=== PATIENT | male | born 1955 | race Caucasian/White ===

== ENCOUNTER 2017-03-22 14:59 | Inpatient (IN) | payer MEDICARE, OTHER ==
[~2017-03-22] VITALS: Ht 175.3 cm; Wt 86.2 kg
[~2017-03-22 14:59] MED LIST: ACTOS30 MG PO; ASPIRIN 32325 MG/TA1 PO; ASPIRIN 81M81 MG/TA2 PO; ASPIRIN E.C. 8181 MG PO; ATENOLOL25 MG PO; AUGMENTIN 875 M1 TAB PO; BACTRIM DS 8001 TAB PO; BYSTOLIC10 MG PO; CARDI-OMEGA1000 MG PO; COREG12.5 MG PO; COZAAR100 MG PO; DIOVAN160 MG PO; FLOMAX 0.40.4 MG/CAP PO; FLONASE NASAL S16 GM NS; GLUCERNA 1.01500 ML PO; GLUCOPHAGE XR500 M1 PO; HUMALOG100 U/ML SC; HUMALOG100 U/ML SQ; IMDUR 30MG30 MG/TAB PO; K-DUR 10 MEQ T10 MEQ PO; LANTUS100 U/ML; LASIX 40MG TABL40 MG PO; LEVEMIR100 U/ML SC; LEVEMIR100 U/ML SQ; LIPITOR 80MG80 MG PO; LIPITOR40 MG PO; LOTENSIN PO; LOTENSIN40 MG PO; MINOCYCLIN100 MG/CAP PO; NORCO 325 MG-51 TAB PO; NORCO 325 MG-7.1 TAB PO; NORVASC 10MG10 MG PO; NORVASC 5MG5 MG/TAB PO; PRIL40 PO; PRILOSEC40 MG PO; PROBIOTIC ACID1 EAC3 PO; PROBIOTIC GOLD1 EACH PO; ST. JOSEPH81 M2 PO; TUMS EX750 MG PO; ULTRAM 50MG TAB50 MG PO; ZINC SO4; ZOCOR 80MG80 MG PO; ZOCOR80 MG PO; ZYRTEC 10MG10 MG PO
[2017-03-22] MEDS ORDERED: BACTRIM DS 8001 TAB PO (15:52)
[2017-03-22 16:21] LABS: BASO # 0.1 (0.0-0.2); BASO % 0.3 % (0.0-2.0); EOS # 0.1 (0.0-0.7); EOS % 0.6 % (0-4.0); HEMATOCRIT 37.6 % (42.0-52.0); HEMOGLOBIN 12.4 g/dl (13.5-18.0); LYMPH # 0.8 (1.2-3.4); LYMPH % 4.6 % (20.0-51.0); MEAN CELL VOLUME 80 fl (80.0-100.0); MEAN CORPUSCULAR HEMOGLOBIN 26 pg (27.0-31.0); MEAN CORPUSCULAR HGB CONC 33 g/dl (33.0-37.0); MEAN PLATELET VOLUME 10.3 fl (7.4-10.4); MONO # 0.9 (0.1-0.6); MONO % 5.1 % (1.7-9.3); PLATELET COUNT 341 K/mm3 (130-400); RED BLOOD COUNT 4.73 M/mm3 (4.20-5.60)
[2017-03-22 16:33] LABS: ADJUSTED CALCIUM 9.3 mg/dL (8.4-10.2); ALBUMIN 3.2 gm/dL (3.5-5.0); BILIRUBIN,TOTAL 0.8 mg/dL (0.0-1.0); CALCIUM 8.7 mg/dL (8.4-10.2); CREATININE, serum 0.91 mg/dL (0.66-1.25); POTASSIUM 4.6 mmol/L (3.4-5.0); TOTAL PROTEIN 7.5 gm/dL (6.4-8.2)
[2017-03-22 16:52] LABS: C-REACTIVE PROTEIN 25.7 mg/dL (0.0-0.9)
[2017-03-22 19:09] VITALS: BP 140/58; PULSE 69; TEMP 98.9
[2017-03-22 22:00] VITALS: BP 123/54; PULSE 62; TEMP 98.3
[2017-03-23] VITALS (12 sets, daily range): BP systolic 111–138; BP diastolic 50–61; PULSE 57–63; TEMP 97–98.2
[2017-03-23 00:57] LABS: PH 5 (5-8); SQUAMOUS EPITHELIAL None Seen /hpf; URINE APPEARANCE Clear; URINE BACTERIA None Seen /hpf; URINE BILIRUBIN Negative (NEGATIVE); URINE BLOOD 1+ (NEGATIVE); URINE COLOR Yellow; URINE GLUCOSE Negative (NEGATIVE); URINE KETONE Trace (NEGATIVE); URINE UROBILINOGEN Negative (NEGATIVE); URINE WBC 0-2 /hpf
[2017-03-23 10:19] LABS: BASO # 0.1 (0.0-0.2); BASO % 0.5 % (0.0-2.0); EOS # 0.2 (0.0-0.7); EOS % 1.4 % (0-4.0); GRAN # 11.5 (1.4-6.5); GRAN % 82.1 % (42.2-75.2); HEMATOCRIT 33.8 % (42.0-52.0); HEMOGLOBIN 10.9 g/dl (13.5-18.0); LYMPH # 1.4 (1.2-3.4); LYMPH % 9.8 % (20.0-51.0); MEAN CELL VOLUME 82 fl (80.0-100.0); MEAN CORPUSCULAR HEMOGLOBIN 26 pg (27.0-31.0); MEAN CORPUSCULAR HGB CONC 32 g/dl (33.0-37.0); MEAN PLATELET VOLUME 10.4 fl (7.4-10.4); MONO # 0.8 (0.1-0.6); MONO % 5.6 % (1.7-9.3); PLATELET COUNT 361 K/mm3 (130-400); RED BLOOD COUNT 4.12 M/mm3 (4.20-5.60); REDCELL DISTRIBUTION WIDTH-CV 14.4 % (11.5-14.5)
[2017-03-23 10:20] LABS: INR 1.5 (0.8-3.0); PROTHROMBIN TIME 16.7 SECONDS (9.7-12.8)
[2017-03-23 10:35] LABS: CALCIUM 8.2 mg/dL (8.4-10.2); CREATININE, serum 0.78 mg/dL (0.66-1.25); POTASSIUM 4.4 mmol/L (3.4-5.0)
[2017-03-24 01:18] VITALS: BP 117/65; PULSE 56; TEMP 97.4
[2017-03-24 06:18] VITALS: BP 140/63; PULSE 65; TEMP 97.2
[2017-03-24 07:19] LABS: MEAN CELL VOLUME 84 fl (80.0-100.0); MEAN CORPUSCULAR HGB CONC 31 g/dl (33.0-37.0); MEAN PLATELET VOLUME 10.6 fl (7.4-10.4); PLATELET COUNT 355 K/mm3 (130-400); RED BLOOD COUNT 3.99 M/mm3 (4.20-5.60); REDCELL DISTRIBUTION WIDTH-CV 14.2 % (11.5-14.5); WHITE BLOOD COUNT 13.8 K/mm3 (4.8-10.8)
[2017-03-24 07:34] LABS: ADD PATHOLOGY DIFF REVIEW NO; HEMATOCRIT 33.4 % (42.0-52.0); HEMOGLOBIN 10.5 g/dl (13.5-18.0); MEAN CORPUSCULAR HEMOGLOBIN 26 pg (27.0-31.0)
[2017-03-24 07:37] LABS: ADJUSTED CALCIUM 8.8 mg/dL (8.4-10.2); ALBUMIN 2.8 gm/dL (3.5-5.0); BILIRUBIN,TOTAL 0.6 mg/dL (0.0-1.0); CALCIUM 7.8 mg/dL (8.4-10.2); CREATININE, serum 0.75 mg/dL (0.66-1.25); POTASSIUM 4.5 mmol/L (3.4-5.0)
[2017-03-24 08:17] LABS: BAND 3 % (0-10); NEUTROPHILS 91 % (42.0-75.2); TOTAL CELLS COUNTED 100
[2017-03-24 08:18] LABS: ANISOCYTOSIS 1+; PLATELET ESTIMATE NORMAL (NORMAL)
[2017-03-24 10:18] VITALS: BP 132/52; PULSE 70; TEMP 97.1
[2017-03-24 12:45] VITALS: BP 150/59; PULSE 62; TEMP 97.7
[2017-03-24 17:27] VITALS: BP 151/64; PULSE 68; TEMP 97.9
[2017-03-24 21:56] VITALS: BP 143/58; PULSE 66; TEMP 97.9
[2017-03-25 06:11] VITALS: BP 153/66; PULSE 69; TEMP 99
[2017-03-25 07:18] LABS: MEAN CELL VOLUME 84 fl (80.0-100.0); MEAN CORPUSCULAR HGB CONC 32 g/dl (33.0-37.0); MEAN PLATELET VOLUME 10.3 fl (7.4-10.4); PLATELET COUNT 418 K/mm3 (130-400); REDCELL DISTRIBUTION WIDTH-CV 14.3 % (11.5-14.5); WHITE BLOOD COUNT 15.7 K/mm3 (4.8-10.8)
[2017-03-25 07:32] LABS: ADD PATHOLOGY DIFF REVIEW NO; HEMATOCRIT 33.7 % (42.0-52.0); HEMOGLOBIN 10.6 g/dl (13.5-18.0); MEAN CORPUSCULAR HEMOGLOBIN 27 pg (27.0-31.0)
[2017-03-25 07:35] LABS: ADJUSTED CALCIUM 9.1 mg/dL (8.4-10.2); ALBUMIN 2.7 gm/dL (3.5-5.0); BILIRUBIN,TOTAL 0.5 mg/dL (0.0-1.0); CALCIUM 8.1 mg/dL (8.4-10.2); CREATININE, serum 0.61 mg/dL (0.66-1.25); TOTAL PROTEIN 6.9 gm/dL (6.4-8.2)
[2017-03-25 07:49] LABS: POTASSIUM 4.2 mmol/L (3.4-5.0)
[2017-03-25 08:30] LABS: BAND 1 % (0-10); NEUTROPHILS 89 % (42.0-75.2); TOTAL CELLS COUNTED 100
[2017-03-25 08:32] LABS: PLATELET ESTIMATE INCREASED (NORMAL)
[2017-03-25 09:06] VITALS: BP 143/50; PULSE 72; TEMP 98.5
[2017-03-25 14:17] VITALS: BP 134/55; PULSE 69; TEMP 97.7
[2017-03-25 18:00] VITALS: BP 153/67; PULSE 83; TEMP 98.9
[2017-03-25 22:00] VITALS: BP 143/59; PULSE 65; TEMP 98.3
[2017-03-26 02:29] VITALS: BP 156/81; PULSE 67; TEMP 97.7
[2017-03-26 06:52] VITALS: BP 172/74; PULSE 74; TEMP 98
[2017-03-26 08:27] LABS: BASO # 0.1 (0.0-0.2); BASO % 0.5 % (0.0-2.0); EOS # 0.3 (0.0-0.7); EOS % 3.6 % (0-4.0); GRAN # 5.6 (1.4-6.5); GRAN % 60.4 % (42.2-75.2); LYMPH # 2.4 (1.2-3.4); LYMPH % 26.2 % (20.0-51.0); MEAN CELL VOLUME 83 fl (80.0-100.0); MEAN CORPUSCULAR HGB CONC 32 g/dl (33.0-37.0); MEAN PLATELET VOLUME 10.2 fl (7.4-10.4); MONO # 0.7 (0.1-0.6); MONO % 7.9 % (1.7-9.3); PLATELET COUNT 443 K/mm3 (130-400); RED BLOOD COUNT 4.31 M/mm3 (4.20-5.60); REDCELL DISTRIBUTION WIDTH-CV 14.3 % (11.5-14.5); WHITE BLOOD COUNT 9.3 K/mm3 (4.8-10.8)
[2017-03-26 08:36] LABS: HEMATOCRIT 35.6 % (42.0-52.0); HEMOGLOBIN 11.4 g/dl (13.5-18.0); MEAN CORPUSCULAR HEMOGLOBIN 26 pg (27.0-31.0)
[2017-03-26] MEDS ORDERED: NORCO 325 MG-7.1 TAB PO (08:43)
[2017-03-26 09:08] VITALS: BP 139/62; PULSE 71; TEMP 98.4
[2017-03-26 13:54] VITALS: BP 109/52; PULSE 66; TEMP 97.6
== END 2017-03-26 14:50 | disposition home health service (06) | DRG 617 ==
LOC: COL.ER 14:59 → MEDICAL 17:42 → SURG 17:42 → MEDICAL 03-23 11:58 → SURG 03-23 13:36
PROVIDERS: Emergency Medicine; Nurse Practitioner Family; Orthopaedic Surgery; Physician Assistant
PROC: 0Y6J0Z1 Detachment at Left Lower Leg, High, Open Approach (ICD-10-PCS; principal; 2017-03-23 15:00)
DX: E11.621 Type 2 diabetes mellitus with foot ulcer (principal); L03.116 Cellulitis of left lower limb; L97.429 Non-pressure chronic ulcer of left heel and midfoot with unspecified severity; I50.42 Chronic combined systolic (congestive) and diastolic (congestive) heart failure; E87.1 Hypo-osmolality and hyponatremia; E11.628 Type 2 diabetes mellitus with other skin complications; I25.10 Atherosclerotic heart disease of native coronary artery without angina pectoris; Z95.1 Presence of aortocoronary bypass graft; I11.0 Hypertensive heart disease with heart failure; D64.9 Anemia, unspecified; E86.0 Dehydration; Z89.431 Acquired absence of right foot; Z89.432 Acquired absence of left foot; I73.9 Peripheral vascular disease, unspecified
CPT/HCPCS: 99222-AI; 99232-AI; 99239; A9284; J0690; J1100; J1170; J1815; J2250; J2270; J2405; J2543; J2704; J2765; J3010; J3370; J7030; J7040; J7050

== ENCOUNTER → 2017-06-21 | Outpatient (CLI) | payer MEDICARE, OTHER | LOC: SUN.DIA 14:23 | DX: E11.9 Type 2 diabetes mellitus without complications (principal); Z79.4 Long term (current) use of insulin; E78.5 Hyperlipidemia, unspecified; I11.9 Hypertensive heart disease without heart failure; E66.9 Obesity, unspecified; Z71.3 Dietary counseling and surveillance | CPT/HCPCS: G0108 ==

== ENCOUNTER → 2017-07-27 | Outpatient (CLI) | payer MEDICARE, OTHER | LOC: SUN.DIA 10:25 | DX: E11.9 Type 2 diabetes mellitus without complications (principal); Z79.4 Long term (current) use of insulin; E78.5 Hyperlipidemia, unspecified; I11.9 Hypertensive heart disease without heart failure; E66.9 Obesity, unspecified; Z71.3 Dietary counseling and surveillance ==

== ENCOUNTER 2018-03-11 09:10 | Day surgery (SDC) | payer MEDICARE, OTHER ==
[~2018-03-11] VITALS: Ht 175.3 cm; Wt 91.1 kg
[2018-03-11 09:37] VITALS: BP 177/76; PULSE 60; TEMP 98.7
[2018-03-11] MEDS ORDERED: FLONASEALLERGY NS (09:44)
[2018-03-11] MEDS ORDERED: ZOLOFT 50MG50 MG PO (09:45)
[2018-03-11] MEDS ORDERED: CRESTOR20 MG PO (09:45)
[2018-03-11] MEDS ORDERED: PROBIOTIC FORMU1 CAP PO (09:45)
[2018-03-11 11:30] VITALS: BP 158/94; PULSE 72
[2018-03-11 11:45] VITALS: BP 144/83; PULSE 70
[2018-03-11 12:00] VITALS: BP 150/76; PULSE 56
[2018-03-11 12:15] VITALS: BP 153/81; PULSE 57
== END 2018-03-11 12:40 | disposition home or self-care (01) ==
LOC: SDCO 09:10
DX: Z12.11 Encounter for screening for malignant neoplasm of colon (principal); K57.30 Diverticulosis of large intestine without perforation or abscess without bleeding; I10 Essential (primary) hypertension; I51.9 Heart disease, unspecified; E11.9 Type 2 diabetes mellitus without complications; E78.00 Pure hypercholesterolemia, unspecified; Z79.899 Other long term (current) drug therapy; Z79.82 Long term (current) use of aspirin; Z79.4 Long term (current) use of insulin
CPT/HCPCS: OP; J2250; J3010; J7030

== ENCOUNTER → 2018-09-06 | Outpatient (CLI) | payer MEDICARE, OTHER ==
[~2018-09-06] MED LIST changes: +CRESTOR20 MG PO; +FLONASEALLERGY NS; +PROBIOTIC FORMU1 CAP PO; +ZOLOFT 50MG50 MG PO
== END ==
LOC: COL.RAD 07:22
DX: K80.20 Calculus of gallbladder without cholecystitis without obstruction (principal); K86.2 Cyst of pancreas
CPT/HCPCS: A9585

== ENCOUNTER 2018-09-13 11:16 | Emergency (ER) | payer MEDICARE, OTHER ==
[~2018-09-13] VITALS: Ht 177.8 cm; Wt 93.2 kg
[2018-09-13 11:19] VITALS: TEMP 97.7
[2018-09-13] MEDS ORDERED: ZOLOFT 100MG100 MG PO (11:29)
[2018-09-13] MEDS ORDERED: PROAIR HFA0.09 MG/AC IH (11:33)
[2018-09-13] MEDS ORDERED: CLARITIN 1010 MG/TAB PO (11:34)
[2018-09-13 11:54] LABS: BASO # 0.1 (0.0-0.2); BASO % 0.8 % (0.0-2.0); EOS # 0.9 (0.0-0.7); EOS % 8.8 % (0-4.0); GRAN # 5.7 (1.4-6.5); GRAN % 58.3 % (42.2-75.2); LYMPH # 2.2 (1.2-3.4); LYMPH % 22.9 % (20.0-51.0); MEAN CELL VOLUME 87 fl (80.0-100.0); MEAN CORPUSCULAR HEMOGLOBIN 29 pg (27.0-31.0); MEAN CORPUSCULAR HGB CONC 33 g/dl (33.0-37.0); MONO # 0.9 (0.1-0.6); PLATELET COUNT 236 K/mm3 (130-400); REDCELL DISTRIBUTION WIDTH-CV 13.5 % (11.5-14.5)
[2018-09-13 12:06] LABS: ALBUMIN 4.1 gm/dL (3.5-5.0); BILIRUBIN,TOTAL 0.3 mg/dL (0.0-1.0); CREATININE, serum 0.67 mg/dL (0.66-1.25); POTASSIUM 4.5 mmol/L (3.4-5.0); TOTAL PROTEIN 7.5 gm/dL (6.4-8.2)
[2018-09-13 12:53] LABS: COLLECTION METHOD CLEAN CATCH
[2018-09-13 13:00] LABS: MUCOUS Present /lpf; PH 6 (5-8); SQUAMOUS EPITHELIAL 0-2 /hpf; URINE APPEARANCE Clear; URINE BACTERIA None Seen /hpf; URINE BILIRUBIN Negative (NEGATIVE); URINE BLOOD Negative (NEGATIVE); URINE COLOR Yellow; URINE GLUCOSE 3+ (NEGATIVE); URINE KETONE Negative (NEGATIVE); URINE LEUKOCYTE ESTERASE Negative (NEGATIVE); URINE NITRATE Negative (NEGATIVE); URINE PROTEIN(semi-quant) 2+ (NEGATIVE); URINE RBC 0-2 /hpf; URINE UROBILINOGEN Negative (NEGATIVE)
[2018-09-13 15:02] VITALS: BP 128/62; PULSE 56
== END 2018-09-13 15:16 | disposition home or self-care (01) ==
LOC: COL.ER 11:16
PROVIDERS: Emergency Medicine
DX: R10.9 Unspecified abdominal pain (principal); I25.10 Atherosclerotic heart disease of native coronary artery without angina pectoris; I50.9 Heart failure, unspecified; I11.0 Hypertensive heart disease with heart failure; E11.9 Type 2 diabetes mellitus without complications; Z95.1 Presence of aortocoronary bypass graft; Z98.84 Bariatric surgery status
CPT/HCPCS: J2270; J2405; J7040; Q9967

== ENCOUNTER 2018-11-03 14:17 | Inpatient (IN) | payer MEDICARE, OTHER ==
[~2018-11-03] VITALS: Ht 175.3 cm; Wt 89.9 kg
[~2018-11-03 14:17] MED LIST changes: +CLARITIN 1010 MG/TAB PO; +PROAIR HFA0.09 MG/AC IH; +ZOLOFT 100MG100 MG PO
[2018-11-03 14:36] LABS: BASO # 0.1 (0.0-0.2); BASO % 0.7 % (0.0-2.0); EOS # 0.7 (0.0-0.7); EOS % 6.8 % (0-4.0); GRAN # 5.6 (1.4-6.5); GRAN % 57.2 % (42.2-75.2); HEMATOCRIT 42.6 % (42.0-52.0); HEMOGLOBIN 14.2 g/dl (13.5-18.0); LYMPH # 2.4 (1.2-3.4); LYMPH % 24.4 % (20.0-51.0); MEAN CELL VOLUME 86 fl (80.0-100.0); MEAN CORPUSCULAR HEMOGLOBIN 29 pg (27.0-31.0); MEAN CORPUSCULAR HGB CONC 33 g/dl (33.0-37.0); MEAN PLATELET VOLUME 10.7 fl (7.4-10.4); MONO % 10.5 % (1.7-9.3); PLATELET COUNT 208 K/mm3 (130-400); RED BLOOD COUNT 4.93 M/mm3 (4.20-5.60); REDCELL DISTRIBUTION WIDTH-CV 13.2 % (11.5-14.5)
[2018-11-03 14:45] LABS: PROTHROMBIN TIME 11.2 SECONDS (9.7-12.8)
[2018-11-03 14:48] LABS: PARTIAL THROMBOPLASTIN TIME 31.3 SECONDS (26.0-37.0)
[2018-11-03 14:51] LABS: ALANINE AMINOTRANSFERASE 27 U/L (21-72); ALBUMIN 4.1 gm/dL (3.5-5.0); ALKALINE PHOSPHATASE 85 U/L (50-136); ANION GAP 12 mmol/L (7-16); AST,SGOT 24 U/L (15-37); BILIRUBIN,TOTAL 0.3 mg/dL (0.0-1.0); BLOOD UREA NITROGEN 24 mg/dL (9-20); CALCIUM 9.7 mg/dL (8.4-10.2); CARBON DIOXIDE 26 mmol/L (22-30); CHLORIDE 100 mmol/L (98-107); CREATININE, serum 0.74 mg/dL (0.66-1.25); GLUCOSE 166 mg/dL (74-106); LIPASE 60 U/L (23-300); POTASSIUM 4.2 mmol/L (3.4-5.0); SODIUM 138 mmol/L (137-145); TOTAL PROTEIN 7.4 gm/dL (6.4-8.2)
[2018-11-03 15:03] LABS: TROPONIN-I < 0.012 ng/mL (0.000-0.034)
--- NOTE | 2018-11-03 18:47 | NUR ---
Pt arrived to room 352 from ED. He is awake and A/Ox4. He denies pain or discomfort. Saline lock to right hand is free of complications. Meds/allergies/pharm reviewed. Pt denies any shortness of breath, remains on room air. Pt eating supper.
[2018-11-03 19:09] VITALS: BP 146/62; PULSE 66; TEMP 98.5
--- NOTE | 2018-11-03 22:40 | NUR ---
Resting in bed. Assessment complete. Lungs clear. Heart sounds normal. Bowels active. Alert and orientated. Denies pain. Denies needs at this time. Call light in reach.
[2018-11-04] VITALS (16 sets, daily range): BP systolic 122–163; BP diastolic 50–88; PULSE 56–117; TEMP 97.4–98.9
--- NOTE | 2018-11-04 02:58 | NUR ---
Resting in bed asleep. Call light in reach.
--- NOTE | 2018-11-04 04:30 | NUR ---
Up to restroom and returned to bed x1 assist. Call light in reach.
--- NOTE | 2018-11-04 06:38 | NUR ---
Uneventful night. Resting in bed this AM. Denies needs. Call light in reach.
--- NOTE | 2018-11-04 10:51 | NUR ---
Assessment completed, alert/oriented, vital signs stable, denies any further chest pain or dsicomfort, troponin are negative and SR on tele with no acute changes, lung CTA/ no resp.difficulty, sitting up in the chair, he has been NPO / waiting to see district attorney, denies other needs at this time
--- NOTE | 2018-11-04 14:00 | NUR ---
Report received from JARRETT Bell. Pt resting in bed; plan for heart cath this afternoon. Denies further needs at this time.
--- NOTE | 2018-11-04 14:47 | NUR ---
SW and SW student met with patient to discuss discharge planning. While talking surgery came in to take patient to heart cath. Patients PCP Is Dr Herb Harris and [facility] Patient lives with his and uses a walker to ambulate. SW will attempt to meet with him again to complete intake.
--- NOTE | 2018-11-04 15:15 | NUR ---
ALL MEDICATIONS GIVEN BY VERBAL ORDER WITH READBACK WITH MD. SEE MERGE FOR ALL MEDICATION ADMIN TIMES. POSITIVE FAINA'S TEST ON THE LEFT WRIST.
--- NOTE | 2018-11-04 16:20 | NUR ---
Pt returned from vp lab, clean heart cath per report. Cath site clean, dry, intact to left radial with TR band in place. No bleeding noted. Denies needs.
--- NOTE | 2018-11-04 18:29 | NUR ---
Pt vitals remain stable. 5 mL air removed from left radial TR band. Will continue to monitor.
--- NOTE | 2018-11-04 18:44 | NUR ---
No bleeding noted; remaining 5 mL air removed from TR band.
--- NOTE | 2018-11-04 19:10 | NUR ---
Report given to JARRETT Saunders. TR band removed and bandaid placed to cath site. No bleeding or hematoma noted. Denies further needs.
--- NOTE | 2018-11-04 20:14 | NUR ---
PT IN BED WITH HOB AT 45 DEGREE ANGLE, DENIES PAIN OR DISCOMFORT. LEFT RADIAL SITE WITH NO HEMATOMA. PT GIVEN DISCHARGE INSTRUCTIONS AND VERBALIZED UNDERSTANDING, AT BEDSIDE.
--- NOTE | 2018-11-04 20:50 | NUR ---
PT AND GIVEN DISCHARGE INSTRUCTIONS AND VERBALIZED UNDERSTANDING. DISCHARGE PAPERWORK SIGNED BY PT. PT'S IV WAS REMOVED FROM RIGHT HAND, CATHETER INTACT, APPLIED PRESSURE TILL BLEEDING STOPPED, AND A PROTECTIVE DRSG APPLIED, TELEMETRY WAS REMOVED, AND PT WAS ASSISTED GETTING DRESSED BY . PT WAS TAKEN OUT OF FACILITY VIA WHEELCHAIR PUSHED BY TIP MENDER, AND LEFT IN PRIVATE VEHICLE.
== END 2018-11-04 20:50 | disposition home or self-care (01) | DRG 287 ==
LOC: COL.ER 14:17 → MEDICAL 15:44
PROVIDERS: Emergency Medicine; ADMIT Internal Medicine Cardiovascular Disease
PROC: B2111ZZ Fluoroscopy of Multiple Coronary Arteries using Low Osmolar Contrast (ICD-10-PCS; principal; 2018-11-04)
PROC: B2151ZZ Fluoroscopy of Left Heart using Low Osmolar Contrast (ICD-10-PCS; 2018-11-04)
PROC: 4A023N7 Measurement of Cardiac Sampling and Pressure, Left Heart, Percutaneous Approach (ICD-10-PCS; 2018-11-04)
DX: I25.110 Atherosclerotic heart disease of native coronary artery with unstable angina pectoris (principal); I50.32 Chronic diastolic (congestive) heart failure; I11.0 Hypertensive heart disease with heart failure; E11.9 Type 2 diabetes mellitus without complications; I25.10 Atherosclerotic heart disease of native coronary artery without angina pectoris; Z95.1 Presence of aortocoronary bypass graft; Z89.512 Acquired absence of left leg below knee; Z89.431 Acquired absence of right foot; E78.5 Hyperlipidemia, unspecified; Z79.4 Long term (current) use of insulin; I73.9 Peripheral vascular disease, unspecified; F41.9 Anxiety disorder, unspecified; K21.9 Gastro-esophageal reflux disease without esophagitis
CPT/HCPCS: OP; J1644; J1650; J1815; J2250; J3010; Q9967

== ENCOUNTER 2019-01-26 08:34 | Outpatient (RCR) | payer OTHER | END 2019-02-03 09:29 | LOC: WSOH 08:34 | DX: Z01.89 Encounter for other specified special examinations (principal) ==

== ENCOUNTER 2019-12-08 13:09 | Emergency (ER) | payer MEDICARE, OTHER ==
[~2019-12-08] VITALS: Ht 177.8 cm; Wt 94.1 kg
[2019-12-08 13:21] VITALS: TEMP 99
[2019-12-08 14:10] LABS: BASO % 0.6 % (0.0-2.0); EOS # 0.2 (0.0-0.7); EOS % 2.4 % (0-4.0); GRAN # 5.1 (1.4-6.5); GRAN % 70.3 % (42.2-75.2); HEMATOCRIT 41.4 % (42.0-52.0); HEMOGLOBIN 13.4 g/dl (13.5-18.0); LYMPH # 0.9 (1.2-3.4); LYMPH % 11.8 % (20.0-51.0); MEAN CELL VOLUME 87 fl (80.0-100.0); MEAN CORPUSCULAR HEMOGLOBIN 28 pg (27.0-31.0); MEAN CORPUSCULAR HGB CONC 32 g/dl (33.0-37.0); MEAN PLATELET VOLUME 10.3 fl (7.4-10.4); MONO # 1.1 (0.1-0.6); MONO % 14.6 % (1.7-9.3); PLATELET COUNT 191 K/mm3 (130-400); RED BLOOD COUNT 4.78 M/mm3 (4.20-5.60); REDCELL DISTRIBUTION WIDTH-CV 13.9 % (11.5-14.5)
[2019-12-08 14:18] LABS: ALBUMIN 4.3 gm/dL (3.5-5.0); BILIRUBIN,TOTAL 0.5 mg/dL (0.0-1.0); CREATININE, serum 0.81 (0.66-1.25); POTASSIUM 4.4 mmol/L (3.4-5.0); TOTAL PROTEIN 7.6 gm/dL (6.4-8.2)
[2019-12-08 16:01] VITALS: BP 134/66; PULSE 76
== END 2019-12-08 16:01 | disposition home or self-care (01) ==
LOC: COL.ER 13:09
PROVIDERS: Family Medicine
DX: J44.9 Chronic obstructive pulmonary disease, unspecified (principal); J10.1 Influenza due to other identified influenza virus with other respiratory manifestations; R53.1 Weakness; I50.9 Heart failure, unspecified; I25.10 Atherosclerotic heart disease of native coronary artery without angina pectoris; E11.9 Type 2 diabetes mellitus without complications; Z79.4 Long term (current) use of insulin; Z79.82 Long term (current) use of aspirin; Z79.51 Long term (current) use of inhaled steroids
CPT/HCPCS: J7030

== ENCOUNTER → 2020-03-18 | Emergency (ER) | payer MEDICARE, OTHER ==
[~2020-03-18] VITALS: Ht 177.8 cm; Wt 92.3 kg
[~2020-03-18] MED LIST changes: +MULTI VITAMINS1 TAB PO; +PRILOTC PO; +RANEXA 500MG T500 MG PO; +VICTOZA6 MG/ML SQ
[2020-03-18 23:39] VITALS: PULSE 84
[2020-03-18 23:50] LABS: ARTERIAL BLD GAS O2 SATURATION 93.5 % (92-100); ARTERIAL BLD GAS TCO2 CT 22.7; ARTERIAL BLOOD GAS HCO3 21.6 meq/L (22-26); ARTERIAL BLOOD GAS PCO2 33.5 mmHg (35-45); ARTERIAL BLOOD GAS PO2 68.9 mmHg (80-100); ARTERIAL BLOOD GAS pH 7.43 (7.35-7.45)
[2020-03-19 00:17] LABS: ALBUMIN 3.7 gm/dL (3.5-5.0); BASO % 0.3 % (0.0-2.0); BILIRUBIN,TOTAL 0.8 mg/dL (0.0-1.0); CALCIUM 8.9 mg/dL (8.4-10.2); CREATININE, serum 0.67 (0.66-1.25); EOS # 0.4 (0.0-0.7); EOS % 2.3 % (0-4.0); GRAN # 12.9 (1.4-6.5); GRAN % 82.2 % (42.2-75.2); HEMATOCRIT 37.4 % (42.0-52.0); LYMPH # 1.3 (1.2-3.4); MEAN CELL VOLUME 85 fl (80.0-100.0); MEAN CORPUSCULAR HEMOGLOBIN 27 pg (27.0-31.0); MEAN CORPUSCULAR HGB CONC 32 g/dl (33.0-37.0); MEAN PLATELET VOLUME 10.3 fl (7.4-10.4); MONO # 1.1 (0.1-0.6); MONO % 6.7 % (1.7-9.3); PLATELET COUNT 195 K/mm3 (130-400); POTASSIUM 3.6 mmol/L (3.4-5.0); RED BLOOD COUNT 4.39 M/mm3 (4.20-5.60); REDCELL DISTRIBUTION WIDTH-CV 16.6 % (11.5-14.5); TOTAL PROTEIN 7.1 gm/dL (6.4-8.2)
[2020-03-19 00:32] LABS: INR 1.1 (0.8-3.0); PROTHROMBIN TIME 12.2 SECONDS (9.7-12.8)
[2020-03-19 00:35] LABS: PARTIAL THROMBOPLASTIN TIME 29.4 SECONDS (26.0-37.0)
[2020-03-19 00:36] LABS: TROPONIN-I 0.102 ng/mL (0.000-0.035)
[2020-03-19 01:15] VITALS: BP 148/74
== END ==
LOC: COL.ER 23:35
PROVIDERS: Emergency Medicine
DX: J18.9 Pneumonia, unspecified organism (principal); I21.4 Non-ST elevation (NSTEMI) myocardial infarction; I11.0 Hypertensive heart disease with heart failure; I50.9 Heart failure, unspecified; I25.10 Atherosclerotic heart disease of native coronary artery without angina pectoris; I25.2 Old myocardial infarction; E11.9 Type 2 diabetes mellitus without complications; J45.909 Unspecified asthma, uncomplicated; E78.5 Hyperlipidemia, unspecified; Z95.1 Presence of aortocoronary bypass graft; Z79.84 Long term (current) use of oral hypoglycemic drugs; Z79.899 Other long term (current) drug therapy; Z79.82 Long term (current) use of aspirin
CPT/HCPCS: J1644; J1940; J2543

== ENCOUNTER 2020-05-07 09:04 | Emergency (ER) | payer MEDICARE, OTHER ==
[~2020-05-07] VITALS: Ht 177.8 cm; Wt 93.2 kg
[2020-05-07 09:09] VITALS: TEMP 97.5
[2020-05-07 09:56] LABS: BASO % 0.4 % (0.0-2.0); EOS # 0.3 (0.0-0.7); EOS % 3.2 % (0-4.0); GRAN # 7.1 (1.4-6.5); GRAN % 76.7 % (42.2-75.2); HEMOGLOBIN 11.3 g/dl (13.5-18.0); LYMPH # 1.1 (1.2-3.4); MEAN CELL VOLUME 85 fl (80.0-100.0); MEAN CORPUSCULAR HEMOGLOBIN 26 pg (27.0-31.0); MEAN CORPUSCULAR HGB CONC 31 g/dl (33.0-37.0); MEAN PLATELET VOLUME 11.1 fl (7.4-10.4); MONO # 0.7 (0.1-0.6); MONO % 7.5 % (1.7-9.3); PLATELET COUNT 192 K/mm3 (130-400); RED BLOOD COUNT 4.31 M/mm3 (4.20-5.60); REDCELL DISTRIBUTION WIDTH-CV 14.7 % (11.5-14.5)
[2020-05-07 10:00] LABS: PROTHROMBIN TIME 11.6 SECONDS (9.7-12.8)
[2020-05-07 10:05] LABS: ALBUMIN 4.1 gm/dL (3.5-5.0); BILIRUBIN,TOTAL 0.6 mg/dL (0.0-1.0); CALCIUM 9.2 mg/dL (8.4-10.2); CREATININE, serum 0.7 (0.66-1.25); TOTAL PROTEIN 7.5 gm/dL (6.4-8.2)
[2020-05-07 10:16] LABS: TROPONIN-I 0.017 ng/mL (0.000-0.035)
[2020-05-07 10:39] LABS: HEMATOCRIT 36.4 % (42.0-52.0)
[2020-05-07] MEDS ORDERED: LEVAQUIN 750MG750 M1 PO (11:31)
[2020-05-07 12:03] VITALS: BP 140/73; PULSE 72
== END 2020-05-07 12:07 | disposition home or self-care (01) ==
LOC: COL.ER 09:04
PROVIDERS: Emergency Medicine
DX: J18.1 Lobar pneumonia, unspecified organism (principal); I50.9 Heart failure, unspecified; Z79.82 Long term (current) use of aspirin; Z86.19 Personal history of other infectious and parasitic diseases
CPT/HCPCS: J7030

== ENCOUNTER 2020-05-15 10:01 | Emergency (ER) | payer MEDICARE, OTHER ==
[~2020-05-15] VITALS: Ht 175.3 cm; Wt 94.5 kg
[~2020-05-15 10:01] MED LIST changes: +LEVAQUIN 750MG750 M1 PO
[2020-05-15 10:09] VITALS: TEMP 97.8
[2020-05-15 10:42] LABS: BASO # 0.1 (0.0-0.2); BASO % 0.5 % (0.0-2.0); EOS # 0.2 (0.0-0.7); EOS % 1.6 % (0-4.0); GRAN # 8.5 (1.4-6.5); GRAN % 77.8 % (42.2-75.2); HEMOGLOBIN 11.6 g/dl (13.5-18.0); LYMPH # 1.4 (1.2-3.4); LYMPH % 12.5 % (20.0-51.0); MEAN CELL VOLUME 84 fl (80.0-100.0); MEAN CORPUSCULAR HEMOGLOBIN 27 pg (27.0-31.0); MEAN CORPUSCULAR HGB CONC 32 g/dl (33.0-37.0); MEAN PLATELET VOLUME 10.2 fl (7.4-10.4); MONO # 0.8 (0.1-0.6); MONO % 7.1 % (1.7-9.3); PLATELET COUNT 238 K/mm3 (130-400); RED BLOOD COUNT 4.38 M/mm3 (4.20-5.60)
[2020-05-15 10:44] LABS: HEMATOCRIT 36.8 % (42.0-52.0)
[2020-05-15 10:45] LABS: INR 1.1 (0.8-3.0); PROTHROMBIN TIME 12.6 SECONDS (9.7-12.8)
[2020-05-15 10:57] LABS: ALBUMIN 4.1 gm/dL (3.5-5.0); BILIRUBIN,TOTAL 0.7 mg/dL (0.0-1.0); C-REACTIVE PROTEIN 1.1 mg/dL (0.0-0.9); CALCIUM 9.1 mg/dL (8.4-10.2); CREATININE, serum 0.88 (0.66-1.25); TOTAL PROTEIN 7.6 gm/dL (6.4-8.2)
[2020-05-15 11:06] LABS: TROPONIN-I 0.012 ng/mL (0.000-0.035)
[2020-05-15 13:30] VITALS: BP 125/60; PULSE 71
== END 2020-05-15 13:30 | disposition home or self-care (01) ==
LOC: COL.ER 10:01
PROVIDERS: Emergency Medicine
DX: I50.9 Heart failure, unspecified (principal); E11.9 Type 2 diabetes mellitus without complications; I25.10 Atherosclerotic heart disease of native coronary artery without angina pectoris; Z79.4 Long term (current) use of insulin; Z95.9 Presence of cardiac and vascular implant and graft, unspecified; Z79.82 Long term (current) use of aspirin
CPT/HCPCS: J1940; Q9967

== ENCOUNTER 2020-05-18 21:20 | Inpatient (IN) | payer MEDICARE, OTHER ==
[~2020-05-18] VITALS: Ht 172.7 cm; Wt 94.4 kg
[2020-05-18 21:56] LABS: BASO # 0.1 (0.0-0.2); BASO % 0.5 % (0.0-2.0); EOS # 0.4 (0.0-0.7); EOS % 3.2 % (0-4.0); GRAN # 8.5 (1.4-6.5); GRAN % 76.4 % (42.2-75.2); HEMOGLOBIN 11.3 g/dl (13.5-18.0); LYMPH # 1.4 (1.2-3.4); LYMPH % 12.3 % (20.0-51.0); MEAN CELL VOLUME 84 fl (80.0-100.0); MEAN CORPUSCULAR HEMOGLOBIN 26 pg (27.0-31.0); MEAN CORPUSCULAR HGB CONC 31 g/dl (33.0-37.0); MEAN PLATELET VOLUME 10.6 fl (7.4-10.4); MONO # 0.8 (0.1-0.6); MONO % 7.1 % (1.7-9.3); PLATELET COUNT 250 K/mm3 (130-400); RED BLOOD COUNT 4.36 M/mm3 (4.20-5.60); REDCELL DISTRIBUTION WIDTH-CV 15.2 % (11.5-14.5)
[2020-05-18 21:57] LABS: HEMATOCRIT 36.5 % (42.0-52.0)
[2020-05-18 21:58] LABS: ARTERIAL BLD GAS O2 SATURATION 94.4 % (92-100); ARTERIAL BLD GAS TCO2 CT 25.6; ARTERIAL BLOOD GAS HCO3 24.5 meq/L (22-26); ARTERIAL BLOOD GAS PCO2 35.2 mmHg (35-45); ARTERIAL BLOOD GAS PO2 72.8 mmHg (80-100); ARTERIAL BLOOD GAS pH 7.46 (7.35-7.45)
[2020-05-18 22:05] LABS: ALANINE AMINOTRANSFERASE 14 U/L (4-49); ALKALINE PHOSPHATASE 82 U/L (50-136); ANION GAP 8 mmol/L (7-16); AST,SGOT 21 U/L (15-37); BILIRUBIN,TOTAL 0.8 mg/dL (0.0-1.0); BLOOD UREA NITROGEN 19 mg/dL (9-20); CALCIUM 8.8 mg/dL (8.4-10.2); CARBON DIOXIDE 29 mmol/L (22-30); CHLORIDE 100 mmol/L (98-107); CREATININE, serum 0.79 (0.66-1.25); GLUCOSE 183 mg/dL (74-106); SODIUM 136 mmol/L (137-145); TOTAL PROTEIN 7.4 gm/dL (6.4-8.2)
[2020-05-18 22:18] LABS: TROPONIN-I < 0.012 ng/mL (0.000-0.035)
[2020-05-18 22:36] LABS: INR 1.2 (0.8-3.0); PROTHROMBIN TIME 13.3 SECONDS (9.7-12.8)
[2020-05-18 22:38] LABS: PARTIAL THROMBOPLASTIN TIME 31.5 SECONDS (26.0-37.0)
[2020-05-19] VITALS (8 sets, daily range): BP systolic 111–145; BP diastolic 52–75; PULSE 54–107; TEMP 97.4–98.8
[2020-05-19] MEDS ORDERED: IMDUR 60MG60 MG/TAB PO (01:05)
[2020-05-19] MEDS ORDERED: LASIX 20MG TABL20 MG PO (01:05)
[2020-05-19] MEDS ORDERED: PLAVIX 75MG TAB75 MG PO (01:06)
[2020-05-19 08:27] LABS: BASO % 0.3 % (0.0-2.0); EOS # 0.3 (0.0-0.7); EOS % 3.6 % (0-4.0); GRAN # 7.3 (1.4-6.5); GRAN % 76.4 % (42.2-75.2); HEMOGLOBIN 10.8 g/dl (13.5-18.0); LYMPH % 10.4 % (20.0-51.0); MEAN CELL VOLUME 85 fl (80.0-100.0); MEAN CORPUSCULAR HEMOGLOBIN 26 pg (27.0-31.0); MEAN CORPUSCULAR HGB CONC 31 g/dl (33.0-37.0); MEAN PLATELET VOLUME 11.4 fl (7.4-10.4); MONO # 0.9 (0.1-0.6); MONO % 8.9 % (1.7-9.3); PLATELET COUNT 235 K/mm3 (130-400); RED BLOOD COUNT 4.14 M/mm3 (4.20-5.60); REDCELL DISTRIBUTION WIDTH-CV 15.5 % (11.5-14.5)
[2020-05-19 08:30] LABS: HEMATOCRIT 35.3 % (42.0-52.0)
[2020-05-19 08:54] LABS: CALCIUM 8.4 mg/dL (8.4-10.2); CREATININE, serum 0.82 (0.66-1.25); POTASSIUM 3.9 mmol/L (3.4-5.0)
[2020-05-20 03:51] VITALS: BP 120/68; PULSE 66; TEMP 97.4
[2020-05-20 07:29] VITALS: BP 120/53; PULSE 62; TEMP 97.7
[2020-05-20 12:12] VITALS: BP 140/49; PULSE 67; TEMP 98
[2020-05-20 16:33] VITALS: BP 132/78; PULSE 65; TEMP 97.9
[2020-05-20 20:00] VITALS: BP 119/68; PULSE 64; TEMP 97.5
[2020-05-21] VITALS (15 sets, daily range): BP systolic 110–140; BP diastolic 54–85; PULSE 59–92; TEMP 97.5–98.2
[2020-05-21 07:12] LABS: BASO % 0.4 % (0.0-2.0); EOS # 0.4 (0.0-0.7); EOS % 4.9 % (0-4.0); GRAN # 6.5 (1.4-6.5); GRAN % 72.1 % (42.2-75.2); HEMOGLOBIN 11.2 g/dl (13.5-18.0); LYMPH # 1.4 (1.2-3.4); LYMPH % 15.9 % (20.0-51.0); MEAN CELL VOLUME 86 fl (80.0-100.0); MEAN CORPUSCULAR HEMOGLOBIN 26 pg (27.0-31.0); MEAN CORPUSCULAR HGB CONC 31 g/dl (33.0-37.0); MEAN PLATELET VOLUME 10.7 fl (7.4-10.4); MONO # 0.6 (0.1-0.6); MONO % 6.6 % (1.7-9.3); PLATELET COUNT 251 K/mm3 (130-400); RED BLOOD COUNT 4.25 M/mm3 (4.20-5.60); REDCELL DISTRIBUTION WIDTH-CV 15.3 % (11.5-14.5)
[2020-05-21 07:18] LABS: HEMATOCRIT 36.5 % (42.0-52.0)
[2020-05-21 07:26] LABS: CALCIUM 8.5 mg/dL (8.4-10.2); CREATININE, serum 0.81 (0.66-1.25); MAGNESIUM 2.1 mg/dL (1.6-2.3); PHOSPHOROUS 4.2 mg/dL (2.5-4.5); POTASSIUM 3.8 mmol/L (3.4-5.0)
[2020-05-21 09:57] LABS: PLEURAL FLUID RBC 31000 /mm3 (0-0); PLEURAL FLUID WBC 836 /mm3
[2020-05-21 10:20] LABS: PLEURAL FLUID COLOR AMBER
[2020-05-21 10:21] LABS: PLEURAL FLUID APPEARANCE HAZY
[2020-05-21 10:23] LABS: GLUCOSE,PLEURAL FLUID 150 mg/dL
[2020-05-21 10:24] LABS: TOTAL PROTEIN,PLEURAL FLUID < 2.0 gm/dL
[2020-05-22 03:42] VITALS: BP 121/58; PULSE 70; TEMP 97.5
[2020-05-22 07:29] LABS: CALCIUM 8.5 mg/dL (8.4-10.2); CREATININE, serum 0.96 (0.66-1.25); MAGNESIUM 2.2 mg/dL (1.6-2.3); POTASSIUM 3.9 mmol/L (3.4-5.0)
[2020-05-22 07:49] VITALS: BP 126/61; PULSE 63; TEMP 97.6
[2020-05-22 12:26] VITALS: BP 106/58; PULSE 59; TEMP 97.4
[2020-05-22 16:14] VITALS: BP 112/49; PULSE 65; TEMP 97.5
[2020-05-22 20:05] VITALS: BP 113/55; PULSE 62; TEMP 97.7
[2020-05-22 23:57] VITALS: BP 120/59; PULSE 63; TEMP 97.9
[2020-05-23 04:44] VITALS: BP 119/61; PULSE 64; TEMP 98.4
[2020-05-23 06:45] LABS: BASO # 0.1 (0.0-0.2); BASO % 0.5 % (0.0-2.0); EOS # 0.5 (0.0-0.7); EOS % 4.8 % (0-4.0); GRAN # 6.8 (1.4-6.5); HEMOGLOBIN 10.4 g/dl (13.5-18.0); LYMPH # 1.4 (1.2-3.4); LYMPH % 14.9 % (20.0-51.0); MEAN CELL VOLUME 86 fl (80.0-100.0); MEAN CORPUSCULAR HEMOGLOBIN 26 pg (27.0-31.0); MEAN CORPUSCULAR HGB CONC 31 g/dl (33.0-37.0); MEAN PLATELET VOLUME 10.9 fl (7.4-10.4); MONO # 0.7 (0.1-0.6); MONO % 7.5 % (1.7-9.3); PLATELET COUNT 261 K/mm3 (130-400); RED BLOOD COUNT 3.95 M/mm3 (4.20-5.60); REDCELL DISTRIBUTION WIDTH-CV 15.1 % (11.5-14.5)
[2020-05-23 06:48] LABS: HEMATOCRIT 33.9 % (42.0-52.0)
[2020-05-23 06:56] LABS: CALCIUM 8.8 mg/dL (8.4-10.2); CREATININE, serum 0.89 (0.66-1.25); POTASSIUM 3.9 mmol/L (3.4-5.0)
[2020-05-23 08:06] VITALS: BP 128/62; PULSE 67; TEMP 97
[2020-05-23] MEDS ORDERED: NORVASC 5MG5 MG/TAB PO (10:35)
[2020-05-23] MEDS ORDERED: ALDACTONE 25MG25 M1 PO (10:36)
[2020-05-23 11:57] VITALS: BP 109/57; PULSE 58; TEMP 98.2
== END 2020-05-23 15:36 | disposition home health service (06) | DRG 291 ==
LOC: COL.ER 21:20 → MEDICAL 22:03
PROVIDERS: Family Medicine; Internal Medicine Pulmonary Disease; Physician Assistant; ADMIT Student in an Organized Health Care Education/Training Program
PROC: 0W9B3ZZ Drainage of Left Pleural Cavity, Percutaneous Approach (ICD-10-PCS; principal; 2020-05-21)
DX: I11.0 Hypertensive heart disease with heart failure (principal); J96.01 Acute respiratory failure with hypoxia; J90 Pleural effusion, not elsewhere classified; I50.23 Acute on chronic systolic (congestive) heart failure; I25.10 Atherosclerotic heart disease of native coronary artery without angina pectoris; E11.9 Type 2 diabetes mellitus without complications; E78.5 Hyperlipidemia, unspecified; K21.9 Gastro-esophageal reflux disease without esophagitis; F41.9 Anxiety disorder, unspecified; D64.9 Anemia, unspecified; Z95.1 Presence of aortocoronary bypass graft; I25.2 Old myocardial infarction; Z79.4 Long term (current) use of insulin
CPT/HCPCS: 99222-AI; 99232-AI; 99233-AI; 99239; J1650; J1815; J1940

== ENCOUNTER 2020-12-04 15:13 | Emergency (ER) | payer MEDICARE, OTHER ==
[~2020-12-04 15:13] MED LIST changes: +ALDACTONE 25MG25 M1 PO; +DUO-KAPS1 CAP PO; +HUMALOG100 U/ML; +IMDUR 60MG60 MG/TAB PO; +LASIX 20MG TABL20 MG PO; -MULTI VITAMINS1 TAB PO; +PLAVIX 75MG TAB75 MG PO
[2020-12-04 18:30] VITALS: BP 130/71; PULSE 84
[2020-12-05 11:52] LABS: BLOOD UREA NITROGEN 21 mg/dL (9-20); CHLORIDE 104 mmol/L (98-107); CREATININE, serum 1.02 (0.66-1.25); GLUCOSE 71 mg/dL (74-106); POTASSIUM 4.1 mmol/L (3.4-5.0); SODIUM 141 mmol/L (137-145)
[2020-12-05 11:53] LABS: ALANINE AMINOTRANSFERASE 16 U/L (4-49); ALBUMIN 4.1 gm/dL (3.5-5.0); ALKALINE PHOSPHATASE 56 U/L (50-136); AST,SGOT 20 U/L (15-37); BILIRUBIN,TOTAL 0.7 mg/dL (0.0-1.0); CALCIUM 9.5 mg/dL (8.4-10.2); CARBON DIOXIDE 29 mmol/L (22-30); TOTAL PROTEIN 7.1 gm/dL (6.4-8.2); TROPONIN-I < 0.012 ng/mL (0.000-0.035)
[2020-12-05 11:54] LABS: ANION GAP 8 mmol/L (7-16); HEMATOCRIT 39.2 % (42.0-52.0); HEMOGLOBIN 12.5 g/dl (13.5-18.0); MEAN CORPUSCULAR HEMOGLOBIN 28 pg (27.0-31.0); RED BLOOD COUNT 4.44 M/mm3 (4.20-5.60)
[2020-12-05 11:55] LABS: GRAN % 62.1 % (42.2-75.2); LYMPH % 23.6 % (20.0-51.0); MEAN CELL VOLUME 88 fl (80.0-100.0); MEAN CORPUSCULAR HGB CONC 32 g/dl (33.0-37.0); MEAN PLATELET VOLUME 11.4 fl (7.4-10.4); PLATELET COUNT 210 K/mm3 (130-400); REDCELL DISTRIBUTION WIDTH-CV 15.1 % (11.5-14.5)
[2020-12-05 11:56] LABS: BASO # 0.1 (0.0-0.2); BASO % 0.7 % (0.0-2.0); EOS # 0.3 (0.0-0.7); EOS % 3.7 % (0-4.0); GRAN # 5.5 (1.4-6.5); LYMPH # 2.1 (1.2-3.4); MONO # 0.9 (0.1-0.6); MONO % 9.7 % (1.7-9.3)
[2021-03-30] MEDS ORDERED: FERROUS GL325 MG/TAB PO (09:46)
[2021-03-30] MEDS ORDERED: NITRO-DUR0.2 MG/PAT TD (09:47)
[2021-03-30] MEDS ORDERED: DIGITEK0.125 MG PO (09:47)
[2021-03-30] MEDS ORDERED: ELIQUIS 5MG PO (09:47)
[2021-03-30] MEDS ORDERED: NORCO 325 MG-51 TAB PO (09:48)
[2021-03-30] MEDS ORDERED: TOPROL XL 25MG25 MG PO (09:48)
[2021-03-30] MEDS ORDERED: CARAFATE 1GM1 G PO (09:49)
[2021-06-05] MEDS ORDERED: ALDACTONE 25MG25 M1 PO (15:40)
[2021-06-05] MEDS ORDERED: CLARITIN 1010 MG/TAB PO (17:01)
[2021-06-05] MEDS ORDERED: TOPROL XL 25MG25 MG PO (17:03)
[2021-06-05] MEDS ORDERED: LANTUS SOLOS100 U/ML SQ (17:09)
== END 2020-12-06 18:30 | disposition home or self-care (01) ==
LOC: COL.ER 15:13
PROVIDERS: Emergency Medicine
DX: I11.0 Hypertensive heart disease with heart failure (principal); I50.1 Left ventricular failure, unspecified; E11.9 Type 2 diabetes mellitus without complications; Z86.718 Personal history of other venous thrombosis and embolism; Z83.2 Family history of diseases of the blood and blood-forming organs and certain disorders involving the immune mechanism; Z79.02 Long term (current) use of antithrombotics/antiplatelets; Z79.84 Long term (current) use of oral hypoglycemic drugs
CPT/HCPCS: J1940

== ENCOUNTER 2020-12-11 12:30 | Inpatient (IN) | payer MEDICARE, OTHER ==
[2020-12-11] VITALS (343 sets, daily range): BP systolic 18–136; BP diastolic 64–86; PULSE 69–82; TEMP 97.4–97.9; O2SAT 78–100
[~2020-12-11] VITALS: Ht 177.8 cm; Wt 125.0 kg
--- NOTE | 2020-12-11 12:50 | NUR ---
Pt arrived via wheelchair to ICU02. Sindi GUTIERREZ at bedside. Pt removed left below the knee prostetic as well as right distal half of foot prostetic. Pt is pleasant and cooperative with initial assessments. Reports difficulty breathing, attempted to lay down in bed with HOB elevated, pt unable to tolerate. Pts breathing in labored and shallow although resp vitals are WNL. Lung assessment was CTA at this time. Pt is talking, long periods of time, with staff members with no noted increased work of breathing.
[2020-12-11 14:24] LABS: BASO # 0.1 (0.0-0.2); BASO % 0.6 % (0.0-2.0); EOS # 0.3 (0.0-0.7); EOS % 2.6 % (0-4.0); GRAN # 6.9 (1.4-6.5); GRAN % 65.4 % (42.2-75.2); HEMOGLOBIN 12.5 g/dl (13.5-18.0); LYMPH # 2.3 (1.2-3.4); LYMPH % 21.4 % (20.0-51.0); MEAN CELL VOLUME 90 fl (80.0-100.0); MEAN CORPUSCULAR HEMOGLOBIN 28 pg (27.0-31.0); MEAN CORPUSCULAR HGB CONC 31 g/dl (33.0-37.0); MEAN PLATELET VOLUME 10.8 fl (7.4-10.4); MONO % 9.7 % (1.7-9.3); PLATELET COUNT 258 K/mm3 (130-400); RED BLOOD COUNT 4.44 M/mm3 (4.20-5.60); REDCELL DISTRIBUTION WIDTH-CV 14.8 % (11.5-14.5)
[2020-12-11 14:39] LABS: CALCIUM 9.1 mg/dL (8.4-10.2); CREATININE, serum 0.95 (0.66-1.25); POTASSIUM 3.9 mmol/L (3.4-5.0)
[2020-12-11 14:55] LABS: TROPONIN-I 0.083 ng/mL (0.000-0.035)
--- NOTE | 2020-12-11 17:00 | NUR ---
Notified Sindi GUTIERREZ that med rec was completed for review. Also reported results of elevated D Dimer/ Troponin/ BNP labs. Plan reported to this nurse to continue to monitor, no change in care with lab results. Will continue home medications to cover VTE prophylaxis as well as PPI. Okay to sub Prilosec with Protonix.
[2020-12-11] MEDS ORDERED: TRULICITY0.75 MG/0. SQ (17:38)
--- NOTE | 2020-12-11 19:17 | NUR ---
Report provided to Fuentes FARIAS.
--- NOTE | 2020-12-11 20:00 | NUR ---
CHEERFUL EASY GOING GENTLEMEN WHO REQUEST TO BE IN CHAIR THIS EVENING CAUSE OF SHORT NESS OF AIR, DENIES DISCOMFORT, RARE COUGH,
[2020-12-12] VITALS (755 sets, daily range): BP systolic 98–139; BP diastolic 40–81; PULSE 31–77; TEMP 97.5–98.6; O2SAT 87–100
--- NOTE | 2020-12-12 07:20 | NUR ---
Report received by Fuentes FARIAS. Pt resting in chair at bedside currently with television on.
--- NOTE | 2020-12-12 10:45 | NUR ---
Initial visit (this stay); Patient thanked Finger Buff Sewer for looking in on him and offering encouragement and prayer prior to his surgical procedure.
[2020-12-12 12:23] LABS: HEMATOCRIT 38.7 % (42.0-52.0); MEAN CELL VOLUME 91 fl (80.0-100.0); MEAN CORPUSCULAR HEMOGLOBIN 28 pg (27.0-31.0); MEAN CORPUSCULAR HGB CONC 31 g/dl (33.0-37.0); MEAN PLATELET VOLUME 10.8 fl (7.4-10.4); PLATELET COUNT 209 K/mm3 (130-400); RED BLOOD COUNT 4.27 M/mm3 (4.20-5.60); REDCELL DISTRIBUTION WIDTH-CV 14.8 % (11.5-14.5)
[2020-12-12 12:30] LABS: INR 1.4 (0.8-3.0); PROTHROMBIN TIME 15.6 SECONDS (9.7-12.8)
[2020-12-12 12:32] LABS: PARTIAL THROMBOPLASTIN TIME 30.4 SECONDS (26.0-37.0)
--- NOTE | 2020-12-12 14:00 | NUR ---
confectionery laboratory manager staff members X2 at bedside preping pt for procedure. Assisted pt from chair to bed.
--- NOTE | 2020-12-12 14:00 | NUR ---
Pt has been NPO since breakfast/ morning administration of scheduled insulin. BS was 158. Held afternoon dose of insulin due to NPO status, anticipate rechecking and administering noon dose following cath procedure.
--- NOTE | 2020-12-12 15:00 | NUR ---
Pt assisted via bed to laborer wood preserving plant for procedure.
--- NOTE | 2020-12-12 15:10 | NUR ---
Pt returned to ICU02. Awaiting Dr. Martha freire.
--- NOTE | 2020-12-12 15:30 | NUR ---
Plan on cardiac catheterization at 1600. Dr. Thomas was not observed with pt from this nurse.
--- NOTE | 2020-12-12 16:10 | NUR ---
Pt assisted down to golf course laborer X2 nurses. Pt is currently on a heart monitor during transfer.
--- NOTE | 2020-12-12 19:02 | NUR ---
Report provided to Sandra FARIAS
--- NOTE | 2020-12-12 21:36 | NUR ---
Report recieved from JARRETT Garcia. Patient is resting and vitals are stable. Blood pressure is 125/66 and patient's oxygen saturation is 98%. Radha RN showed me the patients abdominal hernia and Angio-seal on the Right femoral site. Patient denies pain, SOB or any symptoms. Blood sugar was 103.
[2020-12-13] VITALS (597 sets, daily range): BP systolic 109–149; BP diastolic 65–93; PULSE 61–77; TEMP 97.8–98.6; O2SAT 71–100
[2020-12-13 04:46] LABS: BASO % 0.4 % (0.0-2.0); EOS # 0.2 (0.0-0.7); EOS % 2.8 % (0-4.0); GRAN # 5.1 (1.4-6.5); GRAN % 66.6 % (42.2-75.2); LYMPH # 1.6 (1.2-3.4); LYMPH % 20.6 % (20.0-51.0); MEAN CELL VOLUME 90 fl (80.0-100.0); MEAN CORPUSCULAR HEMOGLOBIN 28 pg (27.0-31.0); MEAN CORPUSCULAR HGB CONC 31 g/dl (33.0-37.0); MEAN PLATELET VOLUME 11.3 fl (7.4-10.4); MONO # 0.7 (0.1-0.6); MONO % 9.3 % (1.7-9.3); PLATELET COUNT 184 K/mm3 (130-400); RED BLOOD COUNT 3.94 M/mm3 (4.20-5.60); REDCELL DISTRIBUTION WIDTH-CV 14.9 % (11.5-14.5)
[2020-12-13 04:50] LABS: HEMATOCRIT 35.3 % (42.0-52.0)
[2020-12-13 04:54] LABS: CALCIUM 8.5 mg/dL (8.4-10.2); CREATININE, serum 0.93 (0.66-1.25); POTASSIUM 3.8 mmol/L (3.4-5.0)
--- NOTE | 2020-12-13 07:01 | NUR ---
Patient had an uneventful night. He is currently on half a liter of oxygen and saturating 98%. Vitals have been stable. He still has 1/2NS running at 60. He denies pain. His femoral site is still coverd by the Angio-seal and is still clean, dry and intact. He is watching television and resting.
--- NOTE | 2020-12-13 07:49 | NUR ---
FIDELIA, CADIOLOGY APRNS AT BEDSIDE WITH PATIENT.
--- NOTE | 2020-12-13 08:15 | NUR ---
DR SCRUGGS AT BESIDE WITH PATIENT.
[2020-12-13] MEDS ORDERED: DEMADEX 20MG20 M1 PO (11:27)
[2020-12-13] MEDS ORDERED: ENTRESTO 24 MG1 EACH PO (11:28)
[2020-12-13] MEDS ORDERED: CARDENE 20MG CA20 M1 PO (11:29)
--- NOTE | 2020-12-13 13:47 | NUR ---
(late entry 12/12) Electrical Electronics Engineers met with the patient to complete intake. The patient lives in [place] with his , Haydee and their son. The patient is independent and is on oxgyen at baseline. He is on 2L of oxygen at rest and 4L with ambulation. The patient's PCP is Dr. Aden and patient receives medications from [facility] pharmacy. The does not have advanced directives. The patient has had [facility] in the past and was interested in home health services for halfway services. The patient plans to return home at discharge.
--- NOTE | 2020-12-13 14:25 | NUR ---
PATIENT SITTING IN RECLINER, ASSISTED WITH PROSTHETIC PLACEMANT AND GETTING DRESSED IN PERSONAL CLOTHING, ASSURED PERSONAL ITEMS WERE PACKED, REVIEWED DISCHARGE PAPERWORK, ENCOURAGED ANY QUESTIONS ALTHOUGH PATIENT DENIES ANY AT THIS TIME. REMOVED IV SITE, DISCHARGE VITAL SIGNS TAKEN. ASSISTED PATIENT WITH PERSONAL BELONGINGS AND TAKEN VIA WHEELCHAIR TO ER EXIT WHERE PATIENT WAS PICKED UP BY [id number] AND . ASSISTED INTO PASSENGER SEAT. PERSONAL BELONGINGS GIVEN TO FAMILY.
--- NOTE | 2020-12-13 15:00 | NUR ---
NOTIFIED OF PATIENT'S JUDICIAL LAW CLERK IN ICU RM 3. STAFF FOUND AND PLACED AT NURSES' DESK.
--- NOTE | 2020-12-13 15:44 | NUR ---
The patient is to discharge home today, 3/ with nursing services from [facility]. Discharge orders faxed. There are no additional needs.
--- NOTE | 2020-12-13 17:50 | NUR ---
This nurse has been working with primary nurse Laura regarding pt frustrations about staying. Spoke with nurse printing and stamping supervisor Heidi to verify situation, advised to educate pt thoroughly about what to do if decision is made to leave. Upon entering the room pt apoligized stating "I'm sorry, I only get to see my grandbaby every 3 months." Laura and this nurse reported to pt that understand the frustration that is felt by pt although "we are focused on your safety but if you are intent on leaving we would like to discuss another option." Laura stated to pt that "over the next hour we are going to slowly release air out of the TR band. If there is any bleeding or bruising/ hematoma noted than we will want to put more air in". Pt stated "well I'll just stay because my wont let me hear the end of it." We came to an agreement that if family came to ED entrance that we would assist pt via wheelchair to the entrance to see them for a brief period of time although they are advised to wear a mask as well as the pt. Pt agreeable and will call family to work situation out. Pt dinner tray removed with another sandwich, which pt ordered, is on the way.
[2021-03-30] MEDS ORDERED: FERROUS GL325 MG/TAB PO (09:46)
[2021-03-30] MEDS ORDERED: DIGITEK0.125 MG PO (09:47)
[2021-03-30] MEDS ORDERED: ELIQUIS 5MG PO (09:47)
[2021-03-30] MEDS ORDERED: NITRO-DUR0.2 MG/PAT TD (09:47)
[2021-03-30] MEDS ORDERED: TOPROL XL 25MG25 MG PO (09:48)
[2021-03-30] MEDS ORDERED: NORCO 325 MG-51 TAB PO (09:48)
[2021-03-30] MEDS ORDERED: CARAFATE 1GM1 G PO (09:49)
[2021-06-05] MEDS ORDERED: ALDACTONE 25MG25 M1 PO (15:40)
[2021-06-05] MEDS ORDERED: CLARITIN 1010 MG/TAB PO (17:01)
[2021-06-05] MEDS ORDERED: TOPROL XL 25MG25 MG PO (17:03)
[2021-06-05] MEDS ORDERED: LANTUS SOLOS100 U/ML SQ (17:09)
== END 2020-12-13 14:25 | disposition home health service (06) | DRG 175 ==
LOC: ICU 12:30 → EDSTATUS 12-12 12:30 → IMCU 12-12 12:30 → COL.CAR 12-12 12:30 → ICU 12-13 14:25
PROVIDERS: Nurse Practitioner; ADMIT Internal Medicine Interventional Cardiology
PROC: 4A023N7 Measurement of Cardiac Sampling and Pressure, Left Heart, Percutaneous Approach (ICD-10-PCS; principal; 2020-12-12)
PROC: B2181ZZ Fluoroscopy of Left Internal Mammary Bypass Graft using Low Osmolar Contrast (ICD-10-PCS; 2020-12-12)
PROC: B2171ZZ Fluoroscopy of Right Internal Mammary Bypass Graft using Low Osmolar Contrast (ICD-10-PCS; 2020-12-12)
PROC: 02723ZZ Dilation of Coronary Artery, Three Arteries, Percutaneous Approach (ICD-10-PCS; 2020-12-12)
DX: I11.0 Hypertensive heart disease with heart failure (principal); E11.9 Type 2 diabetes mellitus without complications; E78.5 Hyperlipidemia, unspecified; I50.33 Acute on chronic diastolic (congestive) heart failure; Z95.1 Presence of aortocoronary bypass graft; Z89.431 Acquired absence of right foot; Z89.512 Acquired absence of left leg below knee; Z79.82 Long term (current) use of aspirin; I25.110 Atherosclerotic heart disease of native coronary artery with unstable angina pectoris; I25.720 Atherosclerosis of autologous artery coronary artery bypass graft(s) with unstable angina pectoris
CPT/HCPCS: C1725; C1760; C1769; C1887; C1894; J0583; J1644; J1815; J1940; J2250; J3010; J7030

== ENCOUNTER 2021-01-28 20:48 | Emergency (ER) | payer MEDICARE, OTHER ==
[~2021-01-28] VITALS: Ht 177.8 cm; Wt 94.5 kg
[~2021-01-28 20:48] MED LIST changes: +CARDENE 20MG CA20 M1 PO; +DEMADEX 20MG20 M1 PO; +ENTRESTO 24 MG1 EACH PO; +TRULICITY0.75 MG/0. SQ
[2021-01-28 20:52] VITALS: TEMP 97.9
[2021-01-28] MEDS ORDERED: CEPHALEXIN500 M1 PO (21:29)
[2021-01-28] MEDS ORDERED: DOXYCYCLINE 10100 MG PO (21:29)
[2021-01-28] MEDS ORDERED: TYLENOL 325MG325 MG PO (21:52)
[2021-01-28 21:55] VITALS: BP 124/72; PULSE 85
[2021-03-30] MEDS ORDERED: FERROUS GL325 MG/TAB PO (09:46)
[2021-03-30] MEDS ORDERED: NITRO-DUR0.2 MG/PAT TD (09:47)
[2021-03-30] MEDS ORDERED: DIGITEK0.125 MG PO (09:47)
[2021-03-30] MEDS ORDERED: ELIQUIS 5MG PO (09:47)
[2021-03-30] MEDS ORDERED: TOPROL XL 25MG25 MG PO (09:48)
[2021-03-30] MEDS ORDERED: NORCO 325 MG-51 TAB PO (09:48)
[2021-03-30] MEDS ORDERED: CARAFATE 1GM1 G PO (09:49)
[2021-06-05] MEDS ORDERED: ALDACTONE 25MG25 M1 PO (15:40)
[2021-06-05] MEDS ORDERED: CLARITIN 1010 MG/TAB PO (17:01)
[2021-06-05] MEDS ORDERED: TOPROL XL 25MG25 MG PO (17:03)
[2021-06-05] MEDS ORDERED: LANTUS SOLOS100 U/ML SQ (17:09)
== END 2021-01-28 22:09 | disposition home or self-care (01) ==
LOC: COL.ER 20:48
DX: R21 Rash and other nonspecific skin eruption (principal); Z89.431 Acquired absence of right foot

== ENCOUNTER 2021-01-30 12:42 | Inpatient (IN) | payer MEDICARE, OTHER ==
[~2021-01-30] VITALS: Ht 177.8 cm; Wt 94.2 kg
[~2021-01-30 12:42] MED LIST changes: +CEPHALEXIN500 M1 PO; +DOXYCYCLINE 10100 MG PO; +TYLENOL 325MG325 MG PO
[2021-01-30] MEDS ORDERED: PULMICORT180 MCG/Ac IH (14:55)
[2021-01-30] MEDS ORDERED: ZOLOFT 100MG100 MG PO (14:58)
[2021-01-30] MEDS ORDERED: DEMADEX 20MG20 M1 PO (15:00)
[2021-01-30] MEDS ORDERED: VENTOLIN0.09 MG IH (15:17)
[2021-01-30] MEDS ORDERED: TYLENOL W/COD1 UDTAB PO (15:19)
[2021-01-30] MEDS ORDERED: IMDUR 30MG30 MG/TAB PO (15:25)
[2021-01-30 15:35] LABS: BASO # 0.1 (0.0-0.2); BASO % 0.6 % (0.0-2.0); EOS # 0.1 (0.0-0.7); EOS % 1.1 % (0-4.0); GRAN # 8.4 (1.4-6.5); HEMATOCRIT 42.4 % (42.0-52.0); HEMOGLOBIN 12.8 g/dl (13.5-18.0); LYMPH # 1.3 (1.2-3.4); MEAN CELL VOLUME 86 fl (80.0-100.0); MEAN CORPUSCULAR HEMOGLOBIN 26 pg (27.0-31.0); MEAN CORPUSCULAR HGB CONC 30 g/dl (33.0-37.0); MEAN PLATELET VOLUME 10.4 fl (7.4-10.4); MONO % 8.9 % (1.7-9.3); PLATELET COUNT 241 K/mm3 (130-400); RED BLOOD COUNT 4.96 M/mm3 (4.20-5.60); REDCELL DISTRIBUTION WIDTH-CV 16.5 % (11.5-14.5)
[2021-01-30 15:42] LABS: INR 1.6 (0.8-3.0)
[2021-01-30 15:45] LABS: ALBUMIN 3.6 gm/dL (3.5-5.0); BILIRUBIN,TOTAL 0.8 mg/dL (0.0-1.0); CALCIUM 9.1 mg/dL (8.4-10.2); CREATININE, serum 1.17 (0.66-1.25); TOTAL PROTEIN 7.1 gm/dL (6.4-8.2)
[2021-01-30 16:35] VITALS: BP 131/77; PULSE 76; TEMP 97.4
[2021-01-30 19:49] VITALS: BP 103/65; PULSE 78; TEMP 97.6
[2021-01-30 23:59] VITALS: BP 106/62; PULSE 71; TEMP 97
[2021-01-31 03:48] VITALS: BP 94/61; PULSE 71; TEMP 98.3
[2021-01-31 08:00] VITALS: BP 113/56; PULSE 71; TEMP 97.6
[2021-01-31 12:00] VITALS: BP 104/60; PULSE 60; TEMP 98.7
[2021-01-31 15:36] VITALS: BP 86/48; PULSE 60; TEMP 97.9
[2021-01-31 20:40] VITALS: BP 112/58; PULSE 64; TEMP 97.8
[2021-02-01] VITALS (7 sets, daily range): BP systolic 90–129; BP diastolic 50–72; PULSE 58–69; TEMP 97.4–98.6
[2021-02-01 06:40] LABS: HEMOGLOBIN 11.5 g/dl (13.5-18.0); MEAN CELL VOLUME 87 fl (80.0-100.0); MEAN CORPUSCULAR HEMOGLOBIN 26 pg (27.0-31.0); MEAN CORPUSCULAR HGB CONC 30 g/dl (33.0-37.0); PLATELET COUNT 218 K/mm3 (130-400); RED BLOOD COUNT 4.47 M/mm3 (4.20-5.60); REDCELL DISTRIBUTION WIDTH-CV 16.6 % (11.5-14.5)
[2021-02-01 06:49] LABS: CALCIUM 8.2 mg/dL (8.4-10.2); CREATININE, serum 1.24 (0.66-1.25); POTASSIUM 4.5 mmol/L (3.4-5.0)
[2021-02-02 03:28] VITALS: BP 100/66; PULSE 63; TEMP 97.6
[2021-02-02 08:23] VITALS: BP 100/69; PULSE 65; TEMP 97.5
[2021-02-02 08:52] LABS: HEMATOCRIT 41.1 % (42.0-52.0); HEMOGLOBIN 12.2 g/dl (13.5-18.0); MEAN CELL VOLUME 86 fl (80.0-100.0); MEAN CORPUSCULAR HEMOGLOBIN 26 pg (27.0-31.0); MEAN CORPUSCULAR HGB CONC 30 g/dl (33.0-37.0); PLATELET COUNT 214 K/mm3 (130-400); RED BLOOD COUNT 4.79 M/mm3 (4.20-5.60); REDCELL DISTRIBUTION WIDTH-CV 16.4 % (11.5-14.5)
[2021-02-02 09:02] LABS: CALCIUM 8.5 mg/dL (8.4-10.2); CREATININE, serum 1.44 (0.66-1.25); POTASSIUM 4.5 mmol/L (3.4-5.0)
[2021-02-02 11:50] VITALS: BP 101/61; PULSE 56; TEMP 97.6
[2021-02-02 17:03] VITALS: BP 112/56; PULSE 64; TEMP 97.5
[2021-02-02 19:43] VITALS: BP 105/56; PULSE 57; TEMP 97.6
[2021-02-03] VITALS (7 sets, daily range): BP systolic 106–124; BP diastolic 58–75; PULSE 58–72; TEMP 97.5–98.1
[2021-02-03 06:15] LABS: HEMATOCRIT 38.5 % (42.0-52.0); HEMOGLOBIN 11.4 g/dl (13.5-18.0); MEAN CELL VOLUME 87 fl (80.0-100.0); MEAN CORPUSCULAR HEMOGLOBIN 26 pg (27.0-31.0); MEAN CORPUSCULAR HGB CONC 30 g/dl (33.0-37.0); MEAN PLATELET VOLUME 10.3 fl (7.4-10.4); PLATELET COUNT 212 K/mm3 (130-400); RED BLOOD COUNT 4.43 M/mm3 (4.20-5.60); REDCELL DISTRIBUTION WIDTH-CV 16.4 % (11.5-14.5)
[2021-02-03 06:33] LABS: CALCIUM 8.1 mg/dL (8.4-10.2); CREATININE, serum 1.35 (0.66-1.25); POTASSIUM 4.3 mmol/L (3.4-5.0)
[2021-02-03] MEDS ORDERED: CIPRO750 MG PO (10:09)
[2021-02-03] MEDS ORDERED: DOXYCYCLINE 10100 MG PO (11:23)
[2021-02-04 01:02] VITALS: BP 95/40; PULSE 66; TEMP 97.8
[2021-02-04 03:48] VITALS: BP 110/61; PULSE 68; TEMP 98.2
[2021-02-04 07:26] VITALS: BP 114/62; PULSE 69; TEMP 98.3
[2021-02-04 08:57] LABS: BASO # 0.1 (0.0-0.2); BASO % 0.6 % (0.0-2.0); EOS # 0.2 (0.0-0.7); EOS % 2.1 % (0-4.0); GRAN # 5.8 (1.4-6.5); GRAN % 69.3 % (42.2-75.2); HEMATOCRIT 40.2 % (42.0-52.0); HEMOGLOBIN 11.8 g/dl (13.5-18.0); LYMPH # 1.4 (1.2-3.4); LYMPH % 16.1 % (20.0-51.0); MEAN CELL VOLUME 88 fl (80.0-100.0); MEAN CORPUSCULAR HEMOGLOBIN 26 pg (27.0-31.0); MEAN CORPUSCULAR HGB CONC 29 g/dl (33.0-37.0); MEAN PLATELET VOLUME 10.4 fl (7.4-10.4); MONO % 11.5 % (1.7-9.3); PLATELET COUNT 213 K/mm3 (130-400); RED BLOOD COUNT 4.58 M/mm3 (4.20-5.60); REDCELL DISTRIBUTION WIDTH-CV 16.8 % (11.5-14.5)
[2021-02-04 09:09] LABS: CALCIUM 8.3 mg/dL (8.4-10.2); CREATININE, serum 1.2 (0.66-1.25); POTASSIUM 4.6 mmol/L (3.4-5.0)
[2021-02-04 10:58] VITALS: BP 106/60; PULSE 63; TEMP 97.8
[2021-02-04] MEDS ORDERED: SSD25 GM TP ×2 (14:39)
[2021-03-30] MEDS ORDERED: FERROUS GL325 MG/TAB PO (09:46)
[2021-03-30] MEDS ORDERED: ELIQUIS 5MG PO (09:47)
[2021-03-30] MEDS ORDERED: DIGITEK0.125 MG PO (09:47)
[2021-03-30] MEDS ORDERED: NITRO-DUR0.2 MG/PAT TD (09:47)
[2021-03-30] MEDS ORDERED: TOPROL XL 25MG25 MG PO (09:48)
[2021-03-30] MEDS ORDERED: NORCO 325 MG-51 TAB PO (09:48)
[2021-03-30] MEDS ORDERED: CARAFATE 1GM1 G PO (09:49)
[2021-06-05] MEDS ORDERED: ALDACTONE 25MG25 M1 PO (15:40)
[2021-06-05] MEDS ORDERED: CLARITIN 1010 MG/TAB PO (17:01)
[2021-06-05] MEDS ORDERED: TOPROL XL 25MG25 MG PO (17:03)
[2021-06-05] MEDS ORDERED: LANTUS SOLOS100 U/ML SQ (17:09)
== END 2021-02-04 17:02 | disposition home or self-care (01) | DRG 603 ==
LOC: SURG 12:42
PROVIDERS: Physician Assistant; ADMIT Surgery
DX: L03.115 Cellulitis of right lower limb (principal); I50.22 Chronic systolic (congestive) heart failure; N17.9 Acute kidney failure, unspecified; E11.9 Type 2 diabetes mellitus without complications; J44.9 Chronic obstructive pulmonary disease, unspecified; I25.10 Atherosclerotic heart disease of native coronary artery without angina pectoris; N40.0 Benign prostatic hyperplasia without lower urinary tract symptoms; F32.9 Major depressive disorder, single episode, unspecified; B96.5 Pseudomonas (aeruginosa) (mallei) (pseudomallei) as the cause of diseases classified elsewhere; Z99.81 Dependence on supplemental oxygen; Z89.512 Acquired absence of left leg below knee; Z89.421 Acquired absence of other right toe(s); Z95.1 Presence of aortocoronary bypass graft; Z79.02 Long term (current) use of antithrombotics/antiplatelets; Z79.82 Long term (current) use of aspirin; Z79.4 Long term (current) use of insulin; Z87.891 Personal history of nicotine dependence
CPT/HCPCS: 99222; 99223; 99232-AI; 99233-AI; J0692; J1170; J1650; J1815; J2405; J2543; J3370; J7050; J7120

== ENCOUNTER 2021-03-04 18:23 | Inpatient (IN) | payer MEDICARE, OTHER ==
[~2021-03-04] VITALS: Ht 177.8 cm; Wt 93.7 kg
[2021-03-04] VITALS (46 sets, daily range): BP systolic 83; BP diastolic 58–59; PULSE 68; TEMP 97.6; O2SAT 98–100
[~2021-03-04 18:23] MED LIST changes: +CIPRO750 MG PO; +PULMICORT180 MCG/Ac IH; +SSD25 GM TP; +TYLENOL W/COD1 UDTAB PO; +VENTOLIN0.09 MG IH
[2021-03-04 18:59] LABS: BASO # 0.1 (0.0-0.2); BASO % 0.7 % (0.0-2.0); EOS # 0.2 (0.0-0.7); EOS % 3.2 % (0-4.0); GRAN # 4.9 (1.4-6.5); GRAN % 69.3 % (42.2-75.2); HEMOGLOBIN 10.5 g/dl (13.5-18.0); LYMPH # 1.2 (1.2-3.4); LYMPH % 16.2 % (20.0-51.0); MEAN CELL VOLUME 78 fl (80.0-100.0); MEAN CORPUSCULAR HEMOGLOBIN 23 pg (27.0-31.0); MEAN CORPUSCULAR HGB CONC 30 g/dl (33.0-37.0); MEAN PLATELET VOLUME 11.3 fl (7.4-10.4); MONO # 0.7 (0.1-0.6); MONO % 10.2 % (1.7-9.3); PLATELET COUNT 166 K/mm3 (130-400); RED BLOOD COUNT 4.51 M/mm3 (4.20-5.60); REDCELL DISTRIBUTION WIDTH-CV 18.3 % (11.5-14.5)
[2021-03-04 19:00] LABS: HEMATOCRIT 35.1 % (42.0-52.0)
[2021-03-04 19:06] LABS: INR 1.6 (0.8-3.0); PROTHROMBIN TIME 17.9 SECONDS (9.7-12.8)
[2021-03-04 19:16] LABS: ALANINE AMINOTRANSFERASE 50 U/L (4-49); ALBUMIN 3.1 gm/dL (3.5-5.0); ALKALINE PHOSPHATASE 138 U/L (50-136); ANION GAP 8 mmol/L (7-16); AST,SGOT 42 U/L (15-37); BILIRUBIN,TOTAL 0.6 mg/dL (0.0-1.0); BLOOD UREA NITROGEN 24 mg/dL (9-20); CALCIUM 8.2 mg/dL (8.4-10.2); CARBON DIOXIDE 26 mmol/L (22-30); CHLORIDE 102 mmol/L (98-107); CREATININE, serum 0.96 (0.66-1.25); GLUCOSE 111 mg/dL (74-106); POTASSIUM 4.2 mmol/L (3.4-5.0); SODIUM 135 mmol/L (137-145); TOTAL PROTEIN 6.4 gm/dL (6.4-8.2)
[2021-03-04 19:27] LABS: TROPONIN-I < 0.012 ng/mL (0.000-0.035)
[2021-03-04] MEDS ORDERED: PRIL40 PO (21:19)
[2021-03-04] MEDS ORDERED: NORVASC 5MG5 MG/TAB PO (22:04)
[2021-03-04] MEDS ORDERED: CARDENE 20MG CA20 M1 PO (22:09)
[2021-03-04] MEDS ORDERED: FERROUS GL325 MG/TAB PO (22:09)
[2021-03-04] MEDS ORDERED: ALDACTONE 25MG25 M1 PO (22:11)
[2021-03-04] MEDS ORDERED: ZOLOFT 50MG50 MG PO (22:11)
[2021-03-04] MEDS ORDERED: ZOFRAN ODT4 MG PO (22:11)
[2021-03-04] MEDS ORDERED: FLOMAX 0.40.4 MG/CAP PO (22:12)
--- NOTE | 2021-03-04 22:45 | NUR ---
Arrived to ICU 8. Assessment complete and charted. Dobutamine gtt started as ordered. Orientated to ICU. Glass inserted per Karly JARVIS orders. All questions answered. Patient denies needs. Call light in reach.
[2021-03-04 23:42] LABS: COLLECTION METHOD CLEAN CATCH
[2021-03-04 23:51] LABS: PH 5 (5-8); SQUAMOUS EPITHELIAL 0-2 /hpf; URINE APPEARANCE Hazy; URINE BACTERIA Rare /hpf; URINE BILIRUBIN Negative (NEGATIVE); URINE BLOOD Negative (NEGATIVE); URINE COLOR Amber; URINE GLUCOSE Negative (NEGATIVE); URINE KETONE Negative (NEGATIVE); URINE LEUKOCYTE ESTERASE Negative (NEGATIVE); URINE NITRATE Negative (NEGATIVE); URINE PROTEIN(semi-quant) 2+ (NEGATIVE); URINE RBC 0-2 /hpf; URINE UROBILINOGEN Negative (NEGATIVE)
[2021-03-05] VITALS (645 sets, daily range): BP systolic 110–130; BP diastolic 40–81; PULSE 68–75; TEMP 97.6–98; O2SAT 68–100
--- NOTE | 2021-03-05 06:44 | NUR ---
Patient off dobutamine gtt since 546. BP remained stable. Patient received tylenol and norco for pain control in right lower extremity during night. Otherwise uneventful night. Resting in bed this AM. Call light in reach.
--- NOTE | 2021-03-05 07:45 | NUR ---
Report given to JARRETT Correia
--- NOTE | 2021-03-05 10:40 | NUR ---
Initial visit; Patient thanked Supervisor Soldering for looking in on him and offering God's blessings and a get well message.
--- NOTE | 2021-03-05 13:06 | NUR ---
ENTRESTO STARTED PER MD ORDERS. BP 155/91 HR 72 REGULAR. WILL MONITOR.
--- NOTE | 2021-03-05 16:00 | NUR ---
Patient reports that son just tested positive for covid 19. Son lives in [facility]. Hospitalist made aware, orders to swab given. Obtained and sent to lab.
--- NOTE | 2021-03-05 16:16 | NUR ---
Tire Regrooving Machine Operator attended clinical rounds with the team. The patient is a readmit. Following rounds, SW contacted [facility]. They confirm they have the patient for nursing services and will accept him again for services at discharge.
[2021-03-06] VITALS (376 sets, daily range): BP systolic 110–120; BP diastolic 73–80; PULSE 66–73; TEMP 97.4–98.3; O2SAT 66–100
[2021-03-06 01:19] LABS: ARTERIAL BLD GAS TCO2 CT 24.6; ARTERIAL BLOOD GAS BASE EXCESS 0.5 (-2-2); ARTERIAL BLOOD GAS HCO3 23.6 meq/L (22-26); ARTERIAL BLOOD GAS PCO2 32.6 mmHg (35-45); ARTERIAL BLOOD GAS PO2 76.4 mmHg (80-100); ARTERIAL BLOOD GAS pH 7.48 (7.35-7.45)
[2021-03-06 06:07] LABS: BASO # 0.1 (0.0-0.2); EOS # 0.2 (0.0-0.7); EOS % 3.1 % (0-4.0); GRAN # 4.5 (1.4-6.5); GRAN % 62.6 % (42.2-75.2); HEMOGLOBIN 10.7 g/dl (13.5-18.0); LYMPH # 1.5 (1.2-3.4); LYMPH % 20.2 % (20.0-51.0); MEAN CELL VOLUME 76 fl (80.0-100.0); MEAN CORPUSCULAR HEMOGLOBIN 24 pg (27.0-31.0); MEAN CORPUSCULAR HGB CONC 31 g/dl (33.0-37.0); MEAN PLATELET VOLUME 11.8 fl (7.4-10.4); MONO # 0.9 (0.1-0.6); MONO % 12.7 % (1.7-9.3); PLATELET COUNT 190 K/mm3 (130-400); RED BLOOD COUNT 4.53 M/mm3 (4.20-5.60); REDCELL DISTRIBUTION WIDTH-CV 18.5 % (11.5-14.5)
[2021-03-06 06:10] LABS: HEMATOCRIT 34.2 % (42.0-52.0)
[2021-03-06 06:46] LABS: CALCIUM 8.6 mg/dL (8.4-10.2); CREATININE, serum 1.11 (0.66-1.25); POTASSIUM 4.6 mmol/L (3.4-5.0)
--- NOTE | 2021-03-06 07:40 | NUR ---
REPORT RECIEVED FROM HANK RN, ALL QUESTIONS ANSWERED. PATIENT FOUND AWAKE ALERT IN BED. DENIES PAIN OR DISCOMFORT AT THIS TIME. VITAL SIGNS STABLE. DRY GAUZE DRESSING IN PLACE TO RIGHT LEG, BILATERAL LOWER EXTREMEITES WITH REDNESS AND SCABS. HEART SOUNDS REGULAR, LUNG SOUNDS DIMINISHED, BOWEL SOUNDS AUDIBLE. LOUIS IN PLACE DRAINING YELLOW CLEAR URINE. CALL CRUZ WITHIN REACH, WILL CONTINUE TO MONITOR. PER ID CONTINUE CONTACT/DROPLET CONTACT.
[2021-03-06 08:22] LABS: C-REACTIVE PROTEIN 4.7 mg/dL (0.0-0.9)
--- NOTE | 2021-03-06 11:01 | NUR ---
The patient is on contact and droplet precautions. The patient tested negative for Covid-19. Church History Teacher contacted the patient's , Haydee #[phone] to complete intake. The patient has a wheelchair and transfers on his own. He has not been able to put on his prothesis lately. The patient has a cane, walker, and grab bars in the shower. The patient is independent with ADLs. The patient's PCP is Dr. Aden and patient receives medications from [facility]. The patient does not have advanced directives. The plan is for the patient to return home with [facility], snf services. *Discharge disposition: Home with spouse and [facility] snf services.
[2021-03-06] MEDS ORDERED: COREG 6.256.25 MG/TA PO (11:02)
[2021-03-06] MEDS ORDERED: ENTRESTO 24 MG1 EACH PO (11:02)
--- NOTE | 2021-03-06 11:21 | NUR ---
Oil Inspector attended clinical rounds with the team. The patient to discharge [facility] today[facility] 03[facility]06 [facility] SW faxed discharge orders. There are no additional needs at this time. Discharge disposition: Home with spouse and [facility] . PT/Snf
--- NOTE | 2021-03-06 12:50 | NUR ---
DISCHARGE INSTRUCTIONS REVIEWED WITH PATIENT, ALL QUESTIONS ANSWERED. REVIEWED NEW MEDICATION ORDERS. PATIENT GETTING DRESSED AT THIS TIME. WILL PICK PATIENT UP AT THE DOOR AT 1300. IV REMOVED, TOLERATED WITHOUT DIFFICULTY. LOUIS REMOVED, REVIEWED IMPORTANCE OF VOIDING LATER TODAY. PATIENT TRANSFERED TO WHEEL CHAIR WITH ONE ASSIST.
--- NOTE | 2021-03-06 13:00 | NUR ---
PATIENT PLACED IN WIFES CAR. ALL BELONGINGS IN HAND. TO BE DRIVEN HOME BY .
[2021-03-30] MEDS ORDERED: FERROUS GL325 MG/TAB PO (09:46)
[2021-03-30] MEDS ORDERED: DIGITEK0.125 MG PO (09:47)
[2021-03-30] MEDS ORDERED: NITRO-DUR0.2 MG/PAT TD (09:47)
[2021-03-30] MEDS ORDERED: ELIQUIS 5MG PO (09:47)
[2021-03-30] MEDS ORDERED: NORCO 325 MG-51 TAB PO (09:48)
[2021-03-30] MEDS ORDERED: TOPROL XL 25MG25 MG PO (09:48)
[2021-03-30] MEDS ORDERED: CARAFATE 1GM1 G PO (09:49)
[2021-06-05] MEDS ORDERED: ALDACTONE 25MG25 M1 PO (15:40)
[2021-06-05] MEDS ORDERED: CLARITIN 1010 MG/TAB PO (17:01)
[2021-06-05] MEDS ORDERED: TOPROL XL 25MG25 MG PO (17:03)
[2021-06-05] MEDS ORDERED: LANTUS SOLOS100 U/ML SQ (17:09)
== END 2021-03-06 13:01 | disposition home health service (06) | DRG 292 ==
LOC: COL.ER 18:23 → ICU 20:12
PROVIDERS: Internal Medicine; Internal Medicine Critical Care Medicine; Nurse Practitioner Primary Care; ADMIT Student in an Organized Health Care Education/Training Program
DX: I11.0 Hypertensive heart disease with heart failure (principal); L03.115 Cellulitis of right lower limb; Z20.822 Contact with and (suspected) exposure to COVID-19; I25.10 Atherosclerotic heart disease of native coronary artery without angina pectoris; K21.9 Gastro-esophageal reflux disease without esophagitis; I95.9 Hypotension, unspecified; D64.9 Anemia, unspecified; F41.9 Anxiety disorder, unspecified; F32.9 Major depressive disorder, single episode, unspecified; I50.23 Acute on chronic systolic (congestive) heart failure; E78.5 Hyperlipidemia, unspecified; N40.0 Benign prostatic hyperplasia without lower urinary tract symptoms; E11.9 Type 2 diabetes mellitus without complications; Z79.4 Long term (current) use of insulin; Z89.431 Acquired absence of right foot; I25.2 Old myocardial infarction; Z95.1 Presence of aortocoronary bypass graft; Z87.01 Personal history of pneumonia (recurrent); Z79.82 Long term (current) use of aspirin
CPT/HCPCS: 99223-AI; 99233-AI; 99239; A4314; J1250; J1650; J1815; J1940

== ENCOUNTER 2021-04-03 16:54 | Emergency (ER) | payer MEDICARE, OTHER ==
[~2021-04-03] VITALS: Ht 177.8 cm; Wt 69.5 kg
[~2021-04-03 16:54] MED LIST changes: -KLOR-CON/EF25 MEQ PO; -LANTUS SOLOS100 U/ML SQ
[2021-04-03 17:20] VITALS: TEMP 97.4
[2021-04-03 18:10] LABS: BASO # 0.1 (0.0-0.2); BASO % 0.9 % (0.0-2.0); EOS # 0.2 (0.0-0.7); EOS % 3.2 % (0-4.0); GRAN # 4.2 (1.4-6.5); GRAN % 60.8 % (42.2-75.2); HEMATOCRIT 34.4 % (42.0-52.0); HEMOGLOBIN 10.1 g/dl (13.5-18.0); LYMPH # 1.5 (1.2-3.4); LYMPH % 22.3 % (20.0-51.0); MEAN CELL VOLUME 75 fl (80.0-100.0); MEAN CORPUSCULAR HEMOGLOBIN 22 pg (27.0-31.0); MEAN CORPUSCULAR HGB CONC 29 g/dl (33.0-37.0); MONO # 0.8 (0.1-0.6); MONO % 12.2 % (1.7-9.3); PLATELET COUNT 380 K/mm3 (130-400); RED BLOOD COUNT 4.56 M/mm3 (4.20-5.60); REDCELL DISTRIBUTION WIDTH-CV 22.4 % (11.5-14.5)
[2021-04-03 18:12] LABS: ALBUMIN 3.3 gm/dL (3.5-5.0); BILIRUBIN,TOTAL 1.7 mg/dL (0.0-1.0); CALCIUM 8.5 mg/dL (8.4-10.2); CREATININE, serum 0.55 (0.66-1.25); POTASSIUM 3.7 mmol/L (3.4-5.0); TOTAL PROTEIN 7.1 gm/dL (6.4-8.2)
[2021-04-03 18:15] LABS: COLLECTION METHOD CLEAN CATCH; MUCOUS Present /lpf; PH 5 (5-8); URINE APPEARANCE Hazy; URINE BACTERIA None Seen /hpf; URINE BILIRUBIN Negative (NEGATIVE); URINE BLOOD Negative (NEGATIVE); URINE COLOR Amber; URINE GLUCOSE Negative (NEGATIVE); URINE KETONE Trace (NEGATIVE); URINE LEUKOCYTE ESTERASE Negative (NEGATIVE); URINE NITRATE Negative (NEGATIVE); URINE PROTEIN(semi-quant) 1+ (NEGATIVE)
[2021-04-03 21:58] VITALS: BP 140/83; PULSE 98
[2021-06-05] MEDS ORDERED: ALDACTONE 25MG25 M1 PO (15:40)
[2021-06-05] MEDS ORDERED: CLARITIN 1010 MG/TAB PO (17:01)
[2021-06-05] MEDS ORDERED: TOPROL XL 25MG25 MG PO (17:03)
[2021-06-05] MEDS ORDERED: LANTUS SOLOS100 U/ML SQ (17:09)
== END 2021-04-03 21:58 | disposition home or self-care (01) ==
LOC: COL.ER 16:54
PROVIDERS: Family Medicine
DX: R74.8 Abnormal levels of other serum enzymes (principal); I25.10 Atherosclerotic heart disease of native coronary artery without angina pectoris; E11.9 Type 2 diabetes mellitus without complications; I10 Essential (primary) hypertension; E78.5 Hyperlipidemia, unspecified; K21.9 Gastro-esophageal reflux disease without esophagitis; F41.9 Anxiety disorder, unspecified; Z79.02 Long term (current) use of antithrombotics/antiplatelets; Z79.01 Long term (current) use of anticoagulants; Z79.899 Other long term (current) drug therapy; Z79.84 Long term (current) use of oral hypoglycemic drugs
CPT/HCPCS: J7030

== ENCOUNTER → 2021-04-03 | Outpatient (REF) ==
[~2021-04-03] MED LIST changes: +CARAFATE 1GM1 G PO; +COREG 6.256.25 MG/TA PO; +DIGITEK0.125 MG PO; +ELIQUIS 5MG PO; +FERROUS GL325 MG/TAB PO; +KLOR-CON/EF25 MEQ PO; +LANTUS SOLOS100 U/ML SQ; +NITRO-DUR0.2 MG/PAT TD; +TOPROL XL 25MG25 MG PO; +ZOFRAN ODT4 MG PO
[2021-04-03 17:10] LABS: COLLECTION METHOD CLEAN CATCH
[2021-04-03 17:15] LABS: BASO # 0.1 (0.0-0.2); BASO % 0.9 % (0.0-2.0); EOS # 0.2 (0.0-0.7); EOS % 3.2 % (0-4.0); GRAN # 4.2 (1.4-6.5); GRAN % 60.8 % (42.2-75.2); HEMATOCRIT 34.4 % (42.0-52.0); HEMOGLOBIN 10.1 g/dl (13.5-18.0); LYMPH # 1.5 (1.2-3.4); LYMPH % 22.3 % (20.0-51.0); MEAN CELL VOLUME 75 fl (80.0-100.0); MEAN CORPUSCULAR HEMOGLOBIN 22 pg (27.0-31.0); MEAN CORPUSCULAR HGB CONC 29 g/dl (33.0-37.0); MONO # 0.8 (0.1-0.6); MONO % 12.2 % (1.7-9.3); PLATELET COUNT 380 K/mm3 (130-400); RED BLOOD COUNT 4.56 M/mm3 (4.20-5.60); REDCELL DISTRIBUTION WIDTH-CV 22.4 % (11.5-14.5)
[2021-04-03 17:27] LABS: MUCOUS Present /lpf; PH 5 (5-8); URINE APPEARANCE Hazy; URINE BACTERIA None Seen /hpf; URINE BILIRUBIN Negative (NEGATIVE); URINE BLOOD Negative (NEGATIVE); URINE COLOR Amber; URINE GLUCOSE Negative (NEGATIVE); URINE KETONE Trace (NEGATIVE); URINE LEUKOCYTE ESTERASE Negative (NEGATIVE); URINE NITRATE Negative (NEGATIVE); URINE PROTEIN(semi-quant) 1+ (NEGATIVE)
[2021-04-03 17:44] LABS: ALBUMIN 3.3 gm/dL (3.5-5.0); BILIRUBIN,TOTAL 1.7 mg/dL (0.0-1.0); CALCIUM 8.5 mg/dL (8.4-10.2); CREATININE, serum 0.55 (0.66-1.25); POTASSIUM 3.7 mmol/L (3.4-5.0); TOTAL PROTEIN 7.1 gm/dL (6.4-8.2)
== END ==
LOC: ZLAB.STJ 17:08
PROVIDERS: Internal Medicine
DX: I50.23 Acute on chronic systolic (congestive) heart failure (principal); I26.99 Other pulmonary embolism without acute cor pulmonale; E11.622 Type 2 diabetes mellitus with other skin ulcer

== ENCOUNTER 2021-05-27 17:10 | Emergency (ER) | payer MEDICARE, OTHER ==
[~2021-05-27] VITALS: Ht 177.8 cm; Wt 75.0 kg
[2021-05-27 17:15] VITALS: TEMP 97.8
[2021-05-27 18:17] LABS: ALBUMIN 3.6 gm/dL (3.5-5.0); CALCIUM 8.5 mg/dL (8.4-10.2); CREATININE, serum 1.1 (0.66-1.25); TOTAL PROTEIN 7.3 gm/dL (6.4-8.2)
[2021-05-27 18:28] LABS: POTASSIUM 2.9 mmol/L (3.4-5.0)
[2021-05-27 18:30] LABS: BASO # 0.1 (0.0-0.2); BASO % 0.8 % (0.0-2.0); EOS # 0.1 (0.0-0.7); EOS % 0.9 % (0-4.0); GRAN # 5.1 (1.4-6.5); GRAN % 65.3 % (42.2-75.2); LYMPH # 1.8 (1.2-3.4); LYMPH % 23.4 % (20.0-51.0); MEAN CELL VOLUME 75 fl (80.0-100.0); MEAN CORPUSCULAR HGB CONC 28 g/dl (33.0-37.0); MEAN PLATELET VOLUME 11.6 fl (7.4-10.4); MONO # 0.7 (0.1-0.6); MONO % 9.3 % (1.7-9.3); PLATELET COUNT 293 K/mm3 (130-400); RED BLOOD COUNT 4.22 M/mm3 (4.20-5.60); REDCELL DISTRIBUTION WIDTH-CV 19.6 % (11.5-14.5)
[2021-05-27 18:32] LABS: HEMATOCRIT 31.5 % (42.0-52.0); HEMOGLOBIN 8.7 g/dl (13.5-18.0); MEAN CORPUSCULAR HEMOGLOBIN 21 pg (27.0-31.0)
[2021-05-27] MEDS ORDERED: KLOR-CON/EF25 MEQ PO (20:02)
[2021-05-27 21:03] VITALS: BP 112/70; PULSE 71
[2021-06-05] MEDS ORDERED: ALDACTONE 25MG25 M1 PO (15:40)
[2021-06-05] MEDS ORDERED: CLARITIN 1010 MG/TAB PO (17:01)
[2021-06-05] MEDS ORDERED: TOPROL XL 25MG25 MG PO (17:03)
[2021-06-05] MEDS ORDERED: LANTUS SOLOS100 U/ML SQ (17:09)
== END 2021-05-27 21:05 | disposition home or self-care (01) ==
LOC: COL.ER 17:10
PROVIDERS: Nurse Practitioner Primary Care
DX: E87.6 Hypokalemia (principal); E87.1 Hypo-osmolality and hyponatremia; I11.0 Hypertensive heart disease with heart failure; I50.9 Heart failure, unspecified; E11.9 Type 2 diabetes mellitus without complications; I10 Essential (primary) hypertension; I25.10 Atherosclerotic heart disease of native coronary artery without angina pectoris; E78.5 Hyperlipidemia, unspecified; F41.9 Anxiety disorder, unspecified; K21.9 Gastro-esophageal reflux disease without esophagitis; Z95.9 Presence of cardiac and vascular implant and graft, unspecified; Z79.01 Long term (current) use of anticoagulants; Z79.899 Other long term (current) drug therapy; Z79.02 Long term (current) use of antithrombotics/antiplatelets; Z79.84 Long term (current) use of oral hypoglycemic drugs
CPT/HCPCS: J3480